=== PATIENT | male | born 2005 | race Caucasian/White ===

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

== ENCOUNTER → 2025-05-05 | Outpatient (CLI) | payer OTHER, SELFPAY ==
[2025-05-05 18:59] LABS: AST(SGOT) 31 U/L (<=37); Alanine Aminotransfer ALT/SGPT 62 U/L (<=46); Albumin, Serum 4.7 g/dL (3.5-5.0); Alkaline Phosphatase 69 U/L (40-129); Anion Gap 14 (5-15); BUN 23 mg/dL (4-19); BUN/Creat Ratio 19.8 RATIO (10-20); Calcium,Total 9.4 mg/dL (7.6-11.0); Carbon Dioxide 23.5 mmol/L (21.0-32.0); Chloride 104 mmol/L (98-108); Globulin 2.4 g/dL (2.2-4.2); Glucose 99 mg/dL (70-99); Potassium 4.0 mmol/L (3.3-5.1)
== END | disposition home or self-care (01) ==
LOC: MTLAB 15:27
PROVIDERS: PCP Family Medicine
DX: M54.9 Dorsalgia, unspecified (principal)
CPT/HCPCS: 36415; 80053

== ENCOUNTER 2025-07-18 17:04 | Emergency (ER) | payer OTHER, SELFPAY ==
[2025-07-18 17:05] VITALS: BP 158/102; PULSE 105; RESP 18; TEMP 36.8; O2SAT 100
[2025-07-18 17:06] VITALS: BMI 40.4
--- NOTE | 2025-07-18 17:07 | RAD_ITS ---
PROCEDURE: LEFT ANKLE MIN 3 VIEWS 07/18/2025 REASON FOR EXAM: INJURY TECHNIQUE: Procedure Code: RADANK Modality: DX Procedure: ANKLE MIN 3 VIEWS Laterality: Left COMPARISON: None. FINDINGS: Acute nondisplaced oblique fracture of the distal fibular shaft. No additional acute fracture or dislocation appreciated. Ankle mortise is congruent. Mild soft tissue swelling about the ankle. RAD/Ankle min 3 Views IMPRESSION: Acute nondisplaced oblique fracture of the distal fibular shaft. Reading Location: [id number]
--- OUTSIDE RECORDS SUMMARY | 2025-07-18 17:43 | XMS RPT_ITS | CCD ---
Author Organization [facility] Care Team Providers Care Finished Cloth Examiner Name Role Phone Julien Stilldavid Unavailable Unavailable KORTNEY HENDRICKSON Attending Unavailable JANI PALMA Referring UnavailRICK Meyer DO Attending Unavail mónica PRABHAKAR MD, RAYO Primary Care Unavailable Louie VALENCIA, Dr. Batres [facility]UME CHUTE OPERATOR-C, Mann Attending Provider [phone] Kenroymasonow CANE FLUME CHUTE OPERATOR-C, Mann Referring [facility] CANE FLUME CHUTE OPERATOR, Mann Referring Unavailable [facility] CANE FLUME CHUTE OPERATOR, Mann Attending Unavailable Jani Palma Primary Care Unavailable Medications Current Medications Medication Drug Class(es) Dates Sig (Normalized) Sig (Original) meloxicam 15 mg oral tablet (2 sources) Nonsteroidal Anti-inflammatory Drug Start: 01-21-2024 take 1 tablet by mouth once daily Meloxicam 15 mg tablet Active 15 mg PO DAILY January 21, 2024 12:00am Problems Active Problems Problem Classification Problem Date Documented Da te Episodic/Chronic Spondylosis; intervertebral disc disorders; other back problems (1 source) Dorsalgia, unspecified; Translations: [Dorsalgia, unspecified] Onset: 05-13-2025 Episodic Sprains and strains (3 sources) Sprain of ankle; Translations: [Sprain of unspecified ligament of unspecified ankle, initial encounter] 09-09-2023 Episodic Superficial injury; contusion (3 sources) Contusion of foot; Translations: [Contusion of unspecified foot, initial encounter] 09-09-2023 Episodic Unclassified (1 source) Unknown / UNK(Unknown) Onset: 09-17-2017 Past or Other Problems Problem Classification Problem Date Documented Da te Episodic/Chronic Unclassified (1 source) REDNESS BILATERAL EYES Onset: 09-17-2017 Results Test Name Value Interpretation Reference Range Facility Anion gap in Serum or Plasma Ordered By: Mann Huff on 05-05-2025 Anion gap [Moles/Vol] 14 mmol/L 5-15 [facility] BUN/creatinine ratioOrdered By: Mann Kenroymoe on 05-05-2025 Urea nitrogen/Creatinine [Mass ratio] 19.8 mg/mg 10-20 [facility] Bilirubin, totalOrdered By: Mann [facility] 05-05-2025 Bilirubin [Mass/Vol] 1.18 mg/dL 0.00-1.30 [facility] Carbon dioxide, total [Moles /volume] in Central venous bloodOrdered By: Mann [facility] on 05-05-2025 CO2 [Moles/Vol] 23.5 mmol/L 21.0-32.0 [facility] Chloride assayOrdered By: Kelley salgado [facility] on 05-05-2025 Chloride [Moles/Vol] 104 mmol/L 98-108 [facility] Comprehensive Metabolic Prof ilon 05-05-2025 Albumin [Mass/Vol] 4.7 g/dL Normal 3.5-5.0 [facility] Comment on above: Order Comment: Inter face Comments: wants kidneys checked Order Date: 05/05/25 Order Info: 0786 - [facility] check kidneys Performed By: #### L [id number] #### [facility] [address] [facility] [id number] Albumin/Globulin [Mass ratio] 2.0 {ratio} Normal 0.9-2.4 [facility] Comment on above: Order Comment: Inter face Comments: wants kidneys checked Order Date: 05/05/25 Order Info: 0786- - CMP check kidneys Performed By: #### L [id number] #### [facility] [address] [facility] [id number] ALK PHOS 69 U/L Normal 40-129 [facility] Comment on above: Order Comment: Inter face Comments: wants kidneys checked Order Date: 05/05/25 Order Info: 0786-1 - CMP check kidneys Performed By: #### L [id number] #### [facility] [address] [place], [address] ALT [Catalytic activity/Vol] 62 U/L High <=46 [facility] Comment on above: Order Comment: Inter face Comments: wants kidneys checked Order Date: 05/05/25 Order Info: 86-1 - CMP check kidneys Performed By: #### L [id number] #### [facility] [address] [place], [address] AST [Catalytic activity/Vol] 31 U/L Normal <=37 [facility] Comment on above: Order Comment: Inter face Comments: wants kidneys checked Order Date: 05/05/25 Order Info: 785- - CMP check kidneys Performed By: #### L [id number] #### [facility] [address] [place], [address] Bilirubin [Mass/Vol] 1.18 mg/dL Normal 0.00-1.30 [facility] Comment on above: Order Comment: Inter face Comments: wants kidneys checked Order Date: 05/05/25 Order Info: 785- - CMP check kidneys Performed By: #### L [id number] #### [facility] [address] [place], [address] BUN/CRE 19.8 RATIO Normal 10-20 [facility] Comment on above: Order Comment: Inter face Comments: wants kidneys checked Order Date: 05/05/25 Order Info: 785-1 - CMP check kidneys Performed By: #### L [id number] #### [facility] [address] [place], [address] Calcium [Mass/Vol] 9.4 mg/dL Normal 7.6-11.0 [facility] Comment on above: Order Comment: Inter face Comments: wants kidneys checked Order Date: 05/05/25 Order Info: 86-1 - CMP check kidneys Performed By: #### L [id number] #### [facility] [address] [place], [address] Chloride [Moles/Vol] 104 mmol/L Normal 98-108 [facility] Comment on above: Order Comment: Inter face Comments: wants kidneys checked Order Date: 05/05/25 Order Info: 0786-1 - CMP check kidneys Performed By: #### L [id number] #### [facility] [address] [place], [address] CO2 [Moles/Vol] 23.5 mmol/L Normal 21.0-32.0 [facility] Comment on above: Order Comment: Inter face Comments: wants kidneys checked Order Date: 05/05/25 Order Info: 785-1 - CMP check kidneys Performed By: #### L [id number] #### [facility] [address] [place], [address] Creatinine [Mass/Vol] 1.16 mg/dL Normal 0.70-1.20 [facility] Comment on above: Order Comment: Inter face Comments: wants kidneys checked Order Date: 05/05/25 Order Info: 07-1 - CMP check kidneys Performed By: #### L [id number] #### [facility] [address] [place], [address] GAP 14 Normal 5-15 [facility] Comment on above: Order Comment: Inter face Comments: wants kidneys checked Order Date: 05/05/25 Order Info: 07-1 - CMP check kidneys Performed By: #### L [id number] #### [facility] [address] [place], [address] GFR/1.73 sq M.predicted among non-blacks MDRD (S/P/Bld) [Vol rate/Area] 92 mL/min/{1.73_m2} Normal >60 [facility] Comment on above: Order Comment: Inter face Comments: wants kidneys checked Order Date: 05/05/25 Order Info: 0786-1 - CMP check kidneys Result Comment: mL/m in/1.73m2 CKD-EPI Creatinine Equation (2020) Performed By: #### L [id number] #### [facility] [address] [place], [address] Globulin (S) [Mass/Vol] 2.4 g/dL Normal 2.2-4.2 [facility] Comment on above: Order Comment: Inter face Comments: wants kidneys checked Order Date: 05/05/25 Order Info: 86-1 - CMP check kidneys Performed By: #### L [id number] #### [facility] [address] [place], [address] Glucose [Mass/Vol] 99 mg/dL Normal 70-99 [facility] Comment on above: Order Comment: Inter face Comments: wants kidneys checked Order Date: 05/05/25 Order Info: 86-1 - CMP check kidneys Performed By: #### L [id number] #### [facility] [address] [place], [address] Potassium [Moles/Vol] 4.0 mmol/L Normal 3.3-5.1 [facility] Comment on above: Order Comment: Inter face Comments: wants kidneys checked Order Date: 05/05/25 Order Info: 86-1 - CMP check kidneys Performed By: #### L [id number] #### [facility] [address] [place], [address] Sodium [Moles/Vol] 141 mmol/L Normal 133-145 [facility] Comment on above: Order Comment: Inter face Comments: wants kidneys checked Order Date: 05/05/25 Order Info: 86-1 - CMP check kidneys Performed By: #### L [id number] #### [facility] [address] [place], [address] T PROT 7.1 g/dL Normal 5.9-8.4 [facility] Comment on above: Order Comment: Inter face Comments: wants kidneys checked Order Date: 05/05/25 Order Info: 0786-1 - CMP check kidneys Performed By: #### L [id number] #### [facility] [address] [place], [place], [id number] Urea nitrogen [Mass/Vol] 23 mg/dL High 4-19 [facility] Comment on above: Order Comment: Inter face Comments: wants kidneys checked Order Date: 05/05/25 Order Info: 0786-1 - CMP check kidneys Performed By: #### L [id number] #### [facility] [address] [place], [place], [address] Glomerular filtration rate ( GFR) estimation/1.73 sq m using serum, plasma, or whole bOrdered By: Mann Huff on 05-05-2025 GFR/1.73 sq M.predicted among non-blacks MDRD (S/P/Bld) [Vol rate/Area] 92 mL/min/{1.73_m2} >60 [facility] Comment on above: mL/min/1.73m2 CKD-EP I Creatinine Equation (2020) Laboratory - Chemistry and C hemistry - challengeOrdered By: Mann Huff on 05-05-2025 AST [Catalytic activity/Vol] 31 U/L <38 [facility] Potassium measurement (mass/ volume)Ordered By: Mann Huff 05-05-2025 Potassium (Unsp spec) [Mass/Vol] 4.0 mmol/L 3.3-5.1 [facility] Serum creatinine measurement (mass/volume)Ordered By: Mann Huff 05-05-2025 Creatinine [Mass/Vol] 1.16 mg/dL 0.70-1.20 [facility] Serum globulin measurementOr dered By: Mann Huff 05-05-2025 Globulin (S) [Mass/Vol] 2.4 g/dL 2.2-4.2 [facility] Serum glucose measurement (m ass/volume)Ordered By: Mann Huff 05-05-2025 Glucose [Mass/Vol] 99 mg/dL 70-99 [facility] Serum or plasma alanine salazar otransferase (ALT) measurementOrdered By: Mann Huff 05-05-2025 ALT [Catalytic activity/Vol] 62 U/L High <47 [facility] Serum or plasma albumin demi urement (mass/volume)Ordered By: [facility] on 05-05-2025 Albumin [Mass/Vol] 4.7 g/dL 3.5-5.0 [facility] Serum or plasma albumin/glob ulin mass ratioOrdered By: [facility] Albumin/Globulin [Mass ratio] 2.0 {ratio} 0.9-2.4 [facility] Serum or plasma alkaline rich sphatase measurementOrdered By: [facility] on 05-05-2025 ALP [Catalytic activity/Vol] 69 U/L 40-129 [facility] Serum or plasma calcium demi urement (mass/volume)Ordered By: [facility] 05-05-2025 Calcium [Mass/Vol] 9.4 mg/dL 7.6-11.0 [facility] Serum or plasma urea nitroge n measurement (mass/volume)Ordered By: [facility] 05-05-2025 Urea nitrogen [Mass/Vol] 23 mg/dL High 4-19 [facility] Sodium levelOrdered By: Shayy aponte [facility] [place] 05-05-2025 Sodium [Moles/Vol] 141 mmol/L 133-145 [facility] Total proteinOrdered By: Fernando gongora [facility] [place] 05-05-2025 Protein [Mass/Vol] 7.1 g/dL 5.9-8.4 [facility] XR SPINE CERVICAL AP/LAT/FLE X/EXTon 11-12-2024 XR SPINE CERVICAL AP/LAT/FLEX/EXT ORIGINAL EXAMINATION: 3 XRAY VIEWS OF THE THORACIC SPINE; 4 XRAY VIEWS OF THE LUMBAR SPINE; 6 XRAY VIEWS OF THE CERVICAL SPINE INCLUDING FLEX/EX VIEWS 11/11/2024 12:37 pm; 11/11/2024 12:38 pm; 11/11/2024 12:39 pm COMPARISON: None. HISTORY: ORDERING SYSTEM PROVIDED HISTORY: Reason for Exam: back pain; ORDERING SYSTEM PROVIDED HISTORY: Reason for Exam: neck pain FINDINGS: Cervical: Straightening of the cervical spine. No significant spondylolisthesis. Vertebral body heights and disc spaces are maintained. Predental space is not widened. Prevertebral soft tissues are within normal limits. On extension there is trivial retrolisthesis of C3 on C4 and C4 on C5. Elongation of the C7 transverse processes. Lateral masses of C1 are symmetrically aligned with C2. Thoracic: Partially visualized lung zones are aerated. No significant scoliosis. Vertebral body heights are maintained. Lumbar: Mild levo tilt of the lumbar spine. 5 non rib-bearing lumbar type vertebral bodies. Elongation and questionable pseudoarticulation of the right L5 transverse process with the sacrum, possible Castellvi type 2 a. SI joints are maintained without evidence of ankylosis or erosions. Mild straightening of the lumbar spine. No significant spondylolisthesis. Vertebral body heights and disc spaces are maintained. No acute fracture. IMPRESSION: No acute fracture. No significant degenerative changes. Further findings as detailed above. Interpreted by: Vesta Colindres Preliminary Report By: Vesta Colindres Electronically signed By Vesta Colindres Dictated Date: 11/12/2024 9:11:02 AM Prelim Date: 11/12/2024 9:15:32 AM Sign Date: 11/12/2024 9:15:32 AM Ordering Provider: RICK DUARTE [facility] XR SPINE LUMBAR W/OBLIQUES 4 VIEWSon 11-12-2024 XR SPINE LUMBAR W/OBLIQUES 4 VIEWS ORIGINAL EXAMINATION: 3 XRAY VIEWS OF THE THORACIC SPINE; 4 XRAY VIEWS OF THE LUMBAR SPINE; 6 XRAY VIEWS OF THE CERVICAL SPINE INCLUDING FLEX/EX VIEWS 11/11/2024 12:37 pm; 11/11/2024 12:38 pm; 11/11/2024 12:39 pm COMPARISON: None. HISTORY: ORDERING SYSTEM PROVIDED HISTORY: Reason for Exam: back pain; ORDERING SYSTEM PROVIDED HISTORY: Reason for Exam: neck pain FINDINGS: Cervical: Straightening of the cervical spine. No significant spondylolisthesis. Vertebral body heights and disc spaces are maintained. Predental space is not widened. Prevertebral soft tissues are within normal limits. On extension there is trivial retrolisthesis of C3 on C4 and C4 on C5. Elongation of the C7 transverse processes. Lateral masses of C1 are symmetrically aligned with C2. Thoracic: Partially visualized lung zones are aerated. No significant scoliosis. Vertebral body heights are maintained. Lumbar: Mild levo tilt of the lumbar spine. 5 non rib-bearing lumbar type vertebral bodies. Elongation and questionable pseudoarticulation of the right L5 transverse process with the sacrum, possible Castellvi type 2 a. SI joints are maintained without evidence of ankylosis or erosions. Mild straightening of the lumbar spine. No significant spondylolisthesis. Vertebral body heights and disc spaces are maintained. No acute fracture. IMPRESSION: No acute fracture. No significant degenerative changes. Further findings as detailed above. Interpreted by: Vesta Colindres Preliminary Report By: Vesta Colindres Electronically signed By Vesta Colindres Dictated Date: 11/12/2024 9:11:02 AM Prelim Date: 11/12/2024 9:15:32 AM Sign Date: 11/12/2024 9:15:32 AM Ordering Provider: RICK Solomon [facility] XR SPINE THORACIC 2 VIEWSon 11-12-2024 XR SPINE THORACIC 2 VIEWS ORIGINAL EXAMINATION: 3 XRAY VIEWS OF THE THORACIC SPINE; 4 XRAY VIEWS OF THE LUMBAR SPINE; 6 XRAY VIEWS OF THE CERVICAL SPINE INCLUDING FLEX/EX VIEWS 11/11/2024 12:37 pm; 11/11/2024 12:38 pm; 11/11/2024 12:39 pm COMPARISON: None. HISTORY: ORDERING SYSTEM PROVIDED HISTORY: Reason for Exam: back pain; ORDERING SYSTEM PROVIDED HISTORY: Reason for Exam: neck pain FINDINGS: Cervical: Straightening of the cervical spine. No significant spondylolisthesis. Vertebral body heights and disc spaces are maintained. Predental space is not widened. Prevertebral soft tissues are within normal limits. On extension there is trivial retrolisthesis of C3 on C4 and C4 on C5. Elongation of the C7 transverse processes. Lateral masses of C1 are symmetrically aligned with C2. Thoracic: Partially visualized lung zones are aerated. No significant scoliosis. Vertebral body heights are maintained. Lumbar: Mild levo tilt of the lumbar spine. 5 non rib-bearing lumbar type vertebral bodies. Elongation and questionable pseudoarticulation of the right L5 transverse process with the sacrum, possible Castellvi type 2 a. SI joints are maintained without evidence of ankylosis or erosions. Mild straightening of the lumbar spine. No significant spondylolisthesis. Vertebral body heights and disc spaces are maintained. No acute fracture. IMPRESSION: No acute fracture. No significant degenerative changes. Further findings as detailed above. Interpreted by: Vesta Colindres Preliminary Report By: Vesta Colindres Electronically signed By Vesta Colindres Dictated Date: 11/12/2024 9:11:02 AM Prelim Date: 11/12/2024 9:15:32 AM Sign Date: 11/12/2024 9:15:32 AM Ordering Provider: RICK Solomon [facility] MSCon 09-17-2017 [facility] REPORT Normal [facility] DATE OF SERVICE: 09/17/2017REASON OF VISIT: Redness of both eyes.HISTORY OF PRESENT ILLNESS: This is a 12-year-old male who presented with redness ofboth eyes for the last few days, but for the last 1 day, it is progressing. Nodischarge, but he has significant irritation and watering. Vision is unchanged.REVIEW OF SYSTEMS: Review of other systems normal.PAST MEDICAL HISTORY/FAMILY HISTORY/SOCIAL HISTORY: Reviewed.ALLERGIES: NKA.MEDICATIONS: Tylenol.PHYSICAL EXAMINATION:General: He is awake, alert, not in distress. No dyspnea.Vital Signs: Temperature 98.4, blood pressure 130/68, pulse 86, respirations 16,pulse oximetry 96% on room air. Pain score is 0/10.HEENT: Revealed that he has moderate injection of both eyes' conjunctivae withwatering. Cornea appearance was normal. No periorbital or eyeball tenderness. Noredness.Chest: Clear to auscultate.Heart: Regular rate and rhythm.ASSESSMENT: Bilateral conjunctivitis.PLAN: Clinical findings were discussed with patient and his mother in detail. Igave him tobramycin eyedrops to use 2 drops every 6 hours in both eyes for 6 dayswith no refill. He can do cold compresses. Keep the eyes clean. Tylenol as neededand follow up with primary care provider for continuation of care. He was given aschool excuse for tomorrow. His mother understands and agreed. WILFREDO Nice/[id number]: 09/17/2017 20:04DT: 09/19/2017 20:25SSI File#: [id number] #: [id number] d 04/18/18 0951 PAWPR [facility] PATIENT NAME: SANTANA SAENZ [id number] [facility] [address] [place] MEDICAL REC #: [id number] [address] [facility] REPORT [facility] PHYSICIAN Normal [facility] Vital Signs Date Time Vital Sign Value Performing Clinician Faci lity 02-07-2024 11:41-0400 Body temperature 97.3 [degF] [facility] 02-07-2024 11:41-0400 Diastolic blood pressure 64 mm[Hg] [facility] 02-07-2024 11:41-0400 Heart rate 75 /min [facility] 02-07-2024 11:41-0400 Respiratory rate 14 /min [facility] 02-07-2024 11:41-0400 SaO2% (BldA) [Mass fraction] 94 % [facility] 02-07-2024 11:41-0400 Systolic blood pressure 122 mm[Hg] [facility] 02-07-2024 11:11-0400 Inhaled oxygen flow rate 2 L/min [facility] 02-07-2024 09:28-0400 Body height 190.5 cm [facility] 02-07-2024 09:28-0400 Body mass index (BMI) [Percentile] Per age and sex 99.4 % [facility] 02-07-2024 09:28-0400 Body mass index (BMI) [Ratio] 37.5 kg/m2 [facility] 02-07-2024 09:28-0400 Body weight 136.4 kg [facility] 09-01-2023 16:38-0500 Body height 193.04 cm [facility] 09-01-2023 16:38-0500 Body mass index (BMI) [Percentile] Per age and sex 99.2 % [facility] 09-01-2023 16:38-0500 Body mass index (BMI) [Ratio] 35.8 kg/m2 [facility] 09-01-2023 16:38-0500 Body temperature 97.8 [degF] [facility] 09-01-2023 16:38-0500 Body weight 133.4 kg [facility] 09-01-2023 16:38-0500 Diastolic blood pressure 83 mm[Hg] [facility] 09-01-2023 16:38-0500 Heart rate 95 /min [facility] 09-01-2023 16:38-0500 Respiratory rate 16 /min [facility] 09-01-2023 16:38-0500 SaO2% (BldA) [Mass fraction] 98 % [facility] 09-01-2023 16:38-0500 Systolic blood pressure 164 mm[Hg] [facility] Encounters Encounter Date Encounter Type Care Provider Facility Start: 05-05-2025 End: 05-05-[address] Jani Palma MD Work Phone: [facility] Start: 05-05-2025 End: 05-05-2025 Patient encounter procedure Mann Huff CANE FLUME CHUTE OPERATOR-C [facility] [place] Work Phone: Start: 05-05-2025 End: 05-05-2025 ambulatory Mann Huff NP Facility:[facility] Start: 11-11-2024 End: 11-11-2024 ambulatory RICK DUARTE DO Facility:D Start: 02-07-2024 End: 02-07-2024 Admission to same day surgery center [facility] Start: 02-07-2024 End: 02-07-2024 ambulatory [facility] Work Phone: Start: 12-01-2023 End: 12-01-2023 ambulatory [facility] Work Phone: Start: 12-01-2023 End: 12-01-2023 Patient encounter procedure [facility] Work Phone: Start: 09-01-2023 End: 09-01-2023 Emergency department patient visit [facility]-Emergency Department Work Phone: Start: 11-30-2022 End: 11-30-2022 ambulatory [facility] Work Phone: Start: 11-30-2022 End: 11-30-2022 [facility] Start: 10-16-2022 End: 10-16-2022 ambulatory [facility] Work Phone: Start: 10-16-2022 End: 10-16-2022 Patient encounter procedure [facility] Start: 08-15-2022 End: 08-15-2022 ambulatory [facility] Work Phone: Start: 08-15-2022 End: 08-15-2022 Patient encounter procedure [facility] Start: 01-09-2022 End: 01-09-2022 Patient encounter procedure [facility] Start: 03-01-2021 ambulatory KORTNEY Fermin lity:[facility] Start: 09-17-2017 Patient encounter Pradavid Fermin lity:[facility] Procedures Date Procedure Procedure Detail Performing Clinician Start: 02-07-2024 Arthroscopy of knee Start: 12-01-2023 MRI of joint of lowe r extremity Start: 09-01-2023 X-ray of both feet Start: 09-01-2023 Plain X-ray of tibia and fibula Start: 11-30-2022 Plain X-ray of tibia and fibula Start: 10-16-2022 Plain X-ray of tibia and fibula Start: 08-15-2022 Plain x-ray of hand Start: 01-09-2022 Diagnostic radiograp hy of finger Plan of Treatment Date Care Activity Detail Author Start: 02-07-2024 Application of ice collar, cap or bag [facility] Start: 02-07-2024 Catheterization of vein [facility] Start: 02-07-2024 Following clinical pathway protocol [facility] Start: 02-07-2024 Patient discharge [facility] Start: 02-07-2024 Procedure discontinued [facility] Start: 02-07-2024 Taking patient vital signs [facility] Start: 02-07-2024 Vital signs measurements [facility] Start: 02-07-2024 [facility] Start: 02-07-2024 Medication education [facility] Start: 09-01-2023 [facility] Patient Education ED Foot Contus ion ED Ankle Sprain (Adult) [facility] Work Phone: Patient referral [facility] Work Phone: Payers Date Payer Category Payer Self-pay [id number] 2024 Unknown [id number] 2024 Unknown [id number] 2005 Unknown [id number] Unknown [id number] Unknown [facility] PACKAGE PLAN [id number] Unknown [facility] PACKAGE PLAN . [id number] Unknown [id number] Social History Date Type Detail Facility Start: 09-20-2017 End: 01-21-2024 Tobacco smoking status NHIS Unknown if ever smoked [facility] Start: 2005 Sex Assigned At Male [facility] Start: 01-21-2024 Tobacco smoking stat us NHIS Never smoked tobacco (finding) [facility] Goals Date Patient Goal Desired Activity /State Mental Status Date Assessment Result Facility 02-07-2024 Cognitive function Voice/Name [facility] Work Phone: Procedure note 02-07-2024 Note Date & Type Note Facility 02-07-2024 Procedure note [facility] Evaluation note Note Date & Type Note Facility Evaluation note No assessment information availa ble [facility] Work Phone: Reason for referral (narrative) Note Date & Type Note Facility Reason for referral (narrative) No reason for referral information available [facility] Work Phone: Summary Purpose Family History No Family History Records FoundNo Family History Records FoundNo Family History Records FoundNo Family History Records Found Advance Directives No Advanced Directives Records Found Advance Directive Response Recorded Date/ Time Living Will No September 01 5:32pm Power of Teacher Cclc No September 01, 2023 5:32pm Advance Directive Response Recorded Date/ Time Living Will No January 21, 2024 10:12am Power of Teacher Cclc No January 20 10:12am Chief Complaint and Reason for Visit Chief Complaint HAND PAIN Chief Complaint HAND PAIN STAT- RIGHT LEG PAIN Chief Complaint RIGHT FOOT INJURY KNEE PAIN Chief Complaint KNEE PAIN KNEE ARTHROSCOPY WITH PARTIAL LATER Chief Complaint Admit Date EOER May 05, 2025 3:2 7pm Additional Source Comments (unrecognized sect ion and content) No Status Records FoundNo Status Records FoundNo Status Records FoundNo Status Records Found INFORMATION SOURCE (unrecogn ized section and content) DATE CREATED AUTHOR 04/19/2018 [facility] DATE CREATED AUTHOR AUTHOR'S ORGANIZ ATION 03/02/2021 [facility] DATE CREATED AUTHOR AUTHOR'S ORGANIZ ATION 11/13/2024 [facility] DATE CREATED AUTHOR AUTHOR'S ORGANIZ ATION 05/15/2025 [facility] Goals (unrecognized section and content) Goals may be documented in a n alternate sectionGoals may be documented in an alternate sectionGoals may be documented in an alternate sectionGoals may be documented in an alternate sectionGoals may be documented in an alternate sectionGoals may be documented in an alternate sectionGoals may be documented in an alternate section Care Teams (unrecognized sec tion and content) Team Status: Active Member Role Status Dates Dr. Kojo Plama MD Family Provider Active Dr. Kojo Palma MD Primary Care Provider Activ e Team Status: Inactive Member Role Status Dates Dr. Kojo Palma MD Primary Care Provider Activ e Dr. Santi Miller MD Attending Provider, Referring Prov ider Active Team Status: Inactive Member Role Status Dates Dr. Kojo Palma MD Primary Care Provider Activ e Bertha Zarate DO Attending Provider, Referring Pr ovider Active Team Status: Inactive Member Role Status Dates Dr. Kojo Palma MD Primary Care Provider Activ e Dr. Rozina Cortes MD Attending Provider, Emergency Provider Active Team Status: Inactive Member Role Status Dates Dr. Kojo Palma MD Primary Care Provider, Attending Provider, Referring Provider Active Team Status: Active Member Role Status Dates Dr. Jani Palma MD Family Provider Active Dr. Jani Palma MD Primary Care Provider Acti ve Team Status: Inactive Member Role Status Dates Dr. Jani Palma MD Primary Care Provider, Attending Provider, Referring Provider Active Team Status: Inactive Member Role Status Dates Dr. Jani Palma MD Primary Care Provider Acti ve Dr. Samir Agarwal DO Attending Provider, Referrin g Provider Active Team Status: Active Member Role/Relationship Status Dates Dr. Jani Palma MD Family Provider Active Dr. Jani Palma MD Primary Care Provider Acti ve Team Status: Inactive Member Role/Relationship Status Dates Dr. Jani Palma MD Primary Care Provider Acti ve Start: May 05, 2025 End: May 05, 2025 Mann Huff CANE FLUME CHUTE OPERATOR, CANE FLUME CHUTE OPERATOR-C Attending Provider Active Start: May 05, 2025 End: May 05, 2025 Mann Huff CANE FLUME CHUTE OPERATOR, CANE FLUME CHUTE OPERATOR-C Referring Provider Active Start: May 05, 2025 End: May 05, 2025 FOR RECORDS PERTAINING TO PATIENTS WHO ARE [...] BE BASED ON THE PRIMARY CLINICAL RECORDS. [facility] [employer] provides no warranty or guarantee of the accuracy or completeness of information in this document.
--- NOTE | 2025-07-18 18:11 | ED.VIS.LOWEX ---
HPI History of Present Illness Chief Complaint: Lower Extremity Injury Narrative Narrative: 20-year-old male brought in by his mother and girlfriend after injury playing football. He states that another player fell onto his left lateral lower extremity. He now has pain with weightbearing and walking. He complains of swelling on the left lateral aspect of his ankle. Denies other injuries. PFSH PFS Medical History Back pain Injury of back Wears glasses Wears contact lenses Non-smoker Leg cramps Medical History no medical history Home Medications ?Medication ?Instructions ?Recorded ?Last Taken ?Type meloxicam 15 mg tablet 15 mg PO DAILY 01/21/24 07/18/25 History oxycodone-acetaminophen 5 mg-325 1 tab PO Q6H PRN pain 3 days #12 07/18/25 Unknown Rx mg tablet (Percocet) tabs Allergy/AdvReac Type Severity Reaction Status Date / Time No Known Allergies Allergy Verified 07/18/25 17:06 Family History no significant family his Surgical History History of tonsillectomy and adenoidectomy Surgical History no surgical history Social History Smoking Status: Never smoker ROS ROS ED ROS Narrative Review of systems positive for left ankle pain and swelling. Positive injury when another player fell onto his left ankle. Pain worse with weightbearing and walking. EXAM Physical Exam Narrative Exam Narrative: GCS 15. ABCs intact. Focused examination of the left ankle shows mild swelling and tenderness on the left distal fibula area. No crepitance. Palpable dorsalis pedis pulse. No erythema. No proximal knee/fibular head tenderness. EHL intact, left. Const Vital Signs: 07/18/25 17:05 Temperature 98.2 F Temperature Source Oral Pulse Rate 105 H Respiratory Rate 18 Blood Pressure 158/102 H Blood Pressure Mean 120 Pulse Ox 100 Oxygen Delivery Method Room Air MDM MDM MDM Narrative Medical decision making narrative: Differential diagnosis includes but not limited to ankle fracture versus sprain versus contusion. Protocol x-rays obtained. On my individual interpretation of the x-rays of the left ankle, there is an acute minimally displaced oblique fracture of the distal fibular shaft. I reviewed the radiology report which confirms my independent interpretation but because it nondisplaced. I discussed patient with Dr. Agarwal, who the patient has seen previously for meniscal repair a few years ago. He would like him placed in a 3 sided splint including sugar-tong with posterior portion, make him nonweightbearing and follow-up in the office on Sunday. Patient declined any oral analgesics here in the emergency department but I wrote him a prescription for Percocet to take as needed. He was instructed to be nonweightbearing, and has crutches that he brought with him. Return instructions to the emergency department were reviewed. Disposition is discharged home in stable condition. History & Record Review Discussion w/independent historian: Patient and Family Radiography Diagnostic Testing: Clinical Impression(s) from Imaging Studies Ankle X-Ray 07/18/25 17:07 IMPRESSION: Acute nondisplaced oblique fracture of the distal fibular shaft. Reading Location: [facility] Management Discussion w/another healthcare provider: Pad Machine Offbearer (Dr. Agarwal, orthopedics) Procedures Lower Extremity Splints Lower Extremity Splint: Orthoglass and Stirrup (With posterior portion) Splint Fabrication: Fabricated Location: Left Discharge Plan Triage Chief Complaint: Lower Extremity Injury ED Provider: Twin Phelps Dx/Rx/DC Orders Clinical Impression: Fracture of distal end of left fibula, Ankle fracture Instructions: ED Ankle Fracture, Distal Fibula Prescriptions: New oxycodone-acetaminophen [Percocet] 5-325 mg tablet 1 tab PO Q6H PRN (Reason: pain) 3 Days Qty: 12 0RF No Action meloxicam 15 mg tablet 15 mg PO DAILY Primary Care Provider: Medardo Palma Referrals: Medardo Palma MD [Primary Care Provider, Family Practice] Samir Agarwal DO [Med Staff - Active Staff, Orthopedics] - 07/21/25 Activity Restrictions/Additional Instructions: Nonweightbearing on your left lower extremity. Use your crutches. Follow-up with Dr. Agarwal with orthopedics on Sunday. Call the office on Sunday for an appointment. Ice for 10 to 15 minutes a few times a day and elevate left lower extremity when possible. Return with new or worsening symptoms. Print Language: Polish Disposition Disposition: Home, Self Care
[2025-07-18 19:00] VITALS: BP 158/102; PULSE 105; RESP 18; TEMP 36.8; O2SAT 100
== END 2025-07-18 19:03 | disposition home or self-care (01) ==
PROVIDERS: Emergency Provider Emergency Medicine; PCP Family Medicine; Visit Provider Emergency Medicine
DX: S82.435A Nondisplaced oblique fracture of shaft of left fibula, initial encounter for closed fracture (principal); W51.XXXA Accidental striking against or bumped into by another person, initial encounter; Y93.61 Activity, american tackle football
CPT/HCPCS: 29515; 73610; 99282

== ENCOUNTER 2025-07-24 06:04 | Day surgery (SDC) | payer OTHER, SELFPAY ==
[2025-07-24] VITALS (12 sets, daily range): BP systolic 117–135; BP diastolic 68–81; PULSE 80–93; RESP 14–16; TEMP 36.6–37.2; O2SAT 92–98; BMI 39.4
[2025-07-24] MEDS: Lactated Ringers 1,000 ML 15 ML IV (06:34)
--- NOTE | 2025-07-24 07:11 | PCM.PRE.AN2 ---
ASA Classification* ASA Classification ASA Classification: 2 Assessment & Plan Anesthesia* Anesthesia Assessment Anesthesia Assessment: Discussed sedation and/or anesthesia options, risks, benefits, and alternatives with patient/parents/legal guardian/POA. Questions invited. The patient/parents/legal guardian/POA seems to understand and agrees to proceed with anesthesia plan. Reviewed the physical assessment, medical history, allergy history and patient home medications list prior to surgery/procedure/anesthetic and documented any changes. Performed airway and anesthesia risk assessments. Anesthesia Type Anesthesia Type: General History Source History Obtained from:: Patient and Chart Anesthesia Focused Assessment* Temperature: 98.4 F Pulse Rate: 81 Blood Pressure: 125/68 Respiratory Rate: 16 Pulse Ox: 97 Oxygen Delivery Method: Room Air Airway Assessment Mouth opens: >3 cm Mallampati Score: II Teeth Condition: Intact Neck Range of motion (ROM): Full ROM Labs Anesthesia Preop lab: CBC CHEMISTRY Potassium, (3.3-5.1) 4.0 mmol/L 05/05/25, 15:30 Sodium, (133-145) 141 mmol/L 05/05/25, 15:30 BUN, (4-19) 23 mg/dL H 05/05/25, 15:30 Creatinine, (0.70-1.20) 1.16 mg/dL 05/05/25, 15:30 Glucose, (70-99) 99 mg/dL 05/05/25, 15:30 COAG Pre-Assessment Diagnosis/Proposed Procedure Planned Operative Procedure(s): ORIF LEFT LATERAL MALLEOLUS FRACTURE AND SYNDESMOSIS Anesthesia History 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 When Was Last Pacemaker Check QUESTION #4 FULL TEXT: You/Your Family Experience fever (hyperthermia) with Anesthesia Any additional information?: No Last Oral Intake Last Oral intake: Last Oral Intake NPO since 05:30 07/24/25 06:34 Meds taken in AM with sips of Yes 07/24/25 06:34 water? Meds patient instructed to percocet 07/24/25 06:34 take am of surgery Any additional information?: No PONV PONV - lap welder: PONV - lap welder Female No 07/23/25 10:17 HX of Motion Sickness No 07/23/25 10:17 HX of N/V After Surgery No 07/23/25 10:17 Non-Smoker Yes 07/23/25 10:17 Duration of Surgery greater Yes 07/23/25 10:17 than 60 minutes Number of Risk Factors 2 07/23/25 10:17 PONV Score Moderate Risk 07/23/25 10:17 Any additional information?: No Height & Weight Height & Weight: Anesthesia: Height & Weight Height 6 ft 3 in 07/24/25 06:34 Weight: 142.882 kg 07/24/25 06:34 Body Mass Index (BMI) 39.4 07/24/25 06:34 Respiratory Assessment Respiratory Assessment - lap welder: Respiratory Tract Infection Hx - lap welder Hx Respiratory Tract Infection No 07/23/25 10:17 Any additional information?: No STOP Sleep Apnea STOP Sleep Apnea - lap welder: STOP Sleep Apnea - lap welder Hx Hypertension No 07/23/25 10:17 Hx Sleep Apnea No 07/23/25 10:17 CPAP BIPAP Do you snore loudly (louder No 07/23/25 10:17 than talking or can be heard Do you often feel tired/ No 07/23/25 10:17 fatigued/ sleepy during daytime? Has anyone observed you stop No 07/23/25 10:17 breathing during sleep? STOP Results Negative 07/23/25 10:17 QUESTION #5 FULL TEXT : Do you snore loudly (louder than talking or can be heard through closed doors)? 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 Specify any problems Hx of Preganancy in last 3 N/A 07/23/25 10:17 Months Nurse Filling Out Transfusion VLEHLAKE ANDES 07/23/25 10:17 & Questions: Date: 07/23/25 07/23/25 10:17 Time: 10:07/23/25 10:17 Patient unable to answer at this time (ie. confused, unrespo Any additional information?: No /Reproduction History /Reproductive History - lap welder: /Reproductive Hx- lap welder Hx Now Gestational Age (in weeks): EDC: Hx Hx Para Hx Section SAB Any additional information?: No Active Medications Active Medications: Current Medications Generic Name Dose Route Start Last Admin Trade Name Freq PRN Reason Stop Dose Admin Cefazolin Sodium 3 gm/ Sodium 115 mls @ 200 mls/hr 07/24/25 07:30 Chloride IV 07/24/25 08:04 INTRAOP ONE Lactated Ringer's 1,000 mls @ 15 mls/hr 07/24/25 06:15 07/24/25 06:34 IV 15 mls/hr .Q48H GORAN Administration PFSH Medical History Back pain Injury of back Wears glasses Wears contact lenses Non-smoker Leg cramps Home Medications ?Medication ?Instructions ?Recorded ?Last Taken ?Type meloxicam 15 mg tablet 15 mg PO DAILY 01/21/24 07/18/25 History oxycodone-acetaminophen 5 mg-325 1 tab PO Q6H PRN pain 3 days #12 07/18/25 07/24/25 05:30 Rx mg tablet (Percocet) tabs Allergy/AdvReac Type Severity Reaction Status Date / Time No Known Allergies Allergy Verified 07/24/25 06:32 Surgical History History of meniscectomy of left knee History of wisdom tooth extraction History of tonsillectomy and adenoidectomy Social History Smoking Status: Never smoker Review of Systems (Anesthesia) ROS Narrative System reviewed and no additional complaints, except as documented.
[2025-07-24] MEDS: Midazolam 2 MG/2 ML Syringe IV (07:23)
[2025-07-24] MEDS: Cefazolin 1 GM/5 ML Vial 3 GM IV (07:38)
[2025-07-24] MEDS: Lidocaine 1% (5 ml sdv) 5 ML Vial 10 ML IV (07:45)
--- NOTE | 2025-07-24 07:45 | RAD_ITS ---
PROCEDURE: RAD/Ankle 2 Views
[2025-07-24] MEDS: fentaNYL 100 MCG/2 ML Ampul 200 MCG IV (08:43)
[2025-07-24] MEDS: dexMEDEtomidine 200 MCG/2 ML ML 40 MCG IV (08:46)
--- NOTE | 2025-07-24 09:02 | OP.PCM_ITS ---
Operative Report (Standard)
--- NOTE | 2025-07-24 09:02 | PCM.OPRPT ---
Operative Report (Standard) Operative Information Date of Procedure: 07/24/25 Pre-Operative Diagnosis: 1. Left lateral malleolus fracture 2. Left ankle syndesmosis rupture Post-Operative Diagnosis: 1. Left lateral malleolus fracture 2. Left ankle syndesmosis rupture Surgery/Procedure Performed: 1. Open reduction internal fixation left lateral malleolus 2. Left ankle syndesmosis open reduction internal fixation management rep: Yes Auriculotherapist: Amanda Valdez Tasks completed by butcher's assistant: Opening & closing, Implanting device and Retracting Additional optometric assistant?: No Type of Anesthesia: General/Regional RN Documented Start/Stop Times: Operation Date: 07/24/25 07:30 Case Time Into Pre-Op 07/24/25 06:12 Anesthesia Start 07/24/25 07:58 Into Room 07/24/25 07:58 Procedure Start 07/24/25 08:01 Procedure End 07/24/25 08:48 Anesthesia End 07/24/25 09:00 Out of Room 07/24/25 09:00 Procedure Start Time: 08:01 Procedure Stop Time: 08:48 Select all DRAINS/GRAFTS/IMPLANTS that apply: Implanted device Implanted device details: Arthrex fibula lock 3.0 x 130 mm with 2.7 millimeter screws x 2 and tight rope x 2 Estimated Blood Loss: 5 cc Specimen collected: No Description of surgery: Patient was seen in preoperative holding area. They were identified by name, medical record number, date of . The operative extremity was marked with a surgical marker. We confirmed informed consent with the patient and all questions were answered to her satisfaction. In the preoperative holding area, a popliteal block and adductor canal block was administered by the anesthesia staff. At time of the procedure, patient was brought to the operative suite and positioned supine on a standard operating table. All bony prominences were well-padded. General anesthesia was administered. After adequate anesthesia, a well-padded pneumatic tourniquet was applied to the left upper thigh. A large bump was placed in the patient's left hip. The left lower extremity was elevated on bath blankets for fluoroscopic imaging and access to the limb during surgery. We secured this with tape as well as the nonoperative extremity. We then performed a timeout with all parties in attendance and agree with the side, site, operation to be performed. No concerns were voiced and elected to proceed. 3 g Ancef was administered prior to incision by the anesthesia staff. We then prepped and draped the operative extremity using a ChloraPrep. Limb was exsanguinated with Esmarch bandage tourniquet inflated to 250 mmHg for approximately 40 minutes. Fluoroscopy was confirmed appropriate reduction and fracture morphology for fibular nailing. Minimally displaced super syndesmotic fracture was noted. I used a 15 blade to make 2 stab incisions at the level of fracture and placed an anterior to posterior Bryant clamp to achieve and secure reduction. 1 cm longitudinal incision was made just distal to the tip of the fibula for nail insertion. Guidewire was placed in standard fashion at the ideal starting point at the tip lateral malleolus centered on the lateral projection. Opening drill was used to drill the distal cortex and distal lateral malleolus. I then used the smaller cannulated drill to go prepare our fibular canal. Nail was placed. Derotational K wire was placed. Smith's were deployed. Incision was made along the lateral malleolus then to place 2 unicortical 2.7 screws in standard fashion through the nail. Another incision was then made due to syndesmotic instability noted on external rotation stress view today to place to tight ropes in standard fashion across the 4 cortices of the syndesmosis. Tight ropes were placed and bones deployed along the medial cortex of the tibia in standard fashion. Foot was dorsiflexed during drilling and tight rope placement. Tight ropes was sequentially tightened. External rotation stress was rechecked and was stable. Sutures were cut. Wounds were irrigated with copious amounts of normal saline solution. Tourniquet was deflated. Hemostasis was excellent. Dermis was reapproximated buried 2-0 Vicryl suture and skin reapproximated with interrupted horizontal mattress 3-0 nylon suture. Bulky sterile compression dressing was applied. 3 sided short leg fiberglass splint was applied maximal dorsiflexion. Patient was safely explained the operative suite and awakened from anesthesia. He was transferred to his gurney and subsequently to PACU in stable condition. He tolerated the procedure well without apparent complication. Postoperative plan: Follow-up in 2 weeks for splint on x-rays Plan to transition to pneumatic foam walking boot in 2 weeks. Nonweightbearing x 6 weeks. Ice and elevation. Oxycodone prescription Sunday. Tylenol and ibuprofen encouraged. Aspirin 81 mg twice daily for DVT prophylaxis starting postoperative day #1. Surgical Findings: Unstable syndesmosis after fixation of lateral malleolus. Stable after fixation. Complications Complications: No Admit VTE Documentation VTE Present on Admission: No VTE Mechan Device Prophylaxis: SCD's VTE Pharm Prophylaxis ordered?: Yes
--- NOTE | 2025-07-24 09:05 | POSTOP.ANE_ITS ---
Anesthesia: Postop Eval I
--- NOTE | 2025-07-24 09:05 | PCM.POST.ANE ---
Anesthesia: Postop Eval I Current Vital Signs Temperature: 98 F Pulse Rate: 92 Blood Pressure: 132/70 Respiratory Rate: 14 Pulse Ox: 96 Assessment Airway patent: Yes Spontaneous unlabored respirations: Yes nausea: No Vomiting: No Anesthesia Complication: No Fluid Hydration Crystalloid volume administer (ml): 1,200 Total IV fluid infused: 1,200 Progress Note Anesthesia document: Postop Eval 1 completed: Yes
--- NOTE | 2025-07-24 11:56 | POSTOPAN2_ITS ---
Anesthesia Postop Eval I Sum
--- NOTE | 2025-07-24 11:56 | PCM.POSTANE2 ---
Anesthesia Postop Eval I Sum Postop Eval Completion status Anesthesia document: Postop Eval 1 completed: Yes Anesthesia Postop Eval I Summary Anesthesia Postop Eval I Summary: Anesthesia Postop Eval I: Assessment Summary Airway patent Yes 07/24/25 09:05 ASSOCIATE PRODUCT MANAGER.TNES Spontaneous unlabored Yes 07/24/25 09:05 ASSOCIATE PRODUCT MANAGER.TNES respirations Mental status nausea No 07/24/25 09:05 ASSOCIATE PRODUCT MANAGER.TNES Vomiting No 07/24/25 09:05 ASSOCIATE PRODUCT MANAGER.TNES Anesthesia Postop Eval I: Fluid Summary Crystalloid volume administer 1,200 07/24/25 09:05 ASSOCIATE PRODUCT MANAGER.TNES (ml) Colloids volume administered ( ml) Blood Product volume administered (ml) Total IV fluid infused 1,200 07/24/25 09:05 ASSOCIATE PRODUCT MANAGER.TNES Anesthesia Postop Eval I: Summary Notes Anesthesia Complication No 07/24/25 09:05 ASSOCIATE PRODUCT MANAGER.TNES Anesthesia Complication Comment: Post-operative progress note Anesthesia: Postop Eval II Evaluation Mental status: Awake Pain Level: 6 nausea: No Vomiting: No
== END 2025-07-24 11:41 | disposition home or self-care (01) ==
LOC: SDC 06:07 → AC 06:08
PROVIDERS: PCP Family Medicine; Referring Provider Student in an Organized Health Care Education/Training Program; Visit Provider Student in an Organized Health Care Education/Training Program
PROC: (CPT 27792; principal; 2025-07-24 07:10)
DX: S82.62XA Displaced fracture of lateral malleolus of left fibula, initial encounter for closed fracture (principal); S93.432A Sprain of tibiofibular ligament of left ankle, initial encounter; R03.0 Elevated blood-pressure reading, without diagnosis of hypertension; X58.XXXA Exposure to other specified factors, initial encounter; Y93.61 Activity, american tackle football
CPT/HCPCS: 27792; 27829; 64450; 64447; 01480; 73600; 76000; C1713; J2405

== ENCOUNTER → 2025-08-18 | Outpatient (CLI) | payer OTHER, SELFPAY ==
--- OUTSIDE RECORDS SUMMARY | 2025-08-18 19:33 | XMS RPT_ITS | CCD ---
Author Organization [facility] Care Team Providers Care Enterprise Cloud Architect Name Role Phone Areli Still Unavailable Unavailable KORTNEY HENDRICKSON Attending Unavailable JANI PALMA Referring UnavailRICK Meyer DO Attending Unavail mónica PRABHAKAR MD, RAYO Primary Care Unavailable Louie VALENCIA, Dr. Batres Primary Care Provider McMorrow REAL ESTATE COORDINATOR-CMann Attending Provider [place]ow REAL ESTATE COORDINATOR-C, Mann Referring Provider Dr. Jani Palma MD Primary Care Physicia n McMorrow REAL ESTATE COORDINATOR-CMann Attending Physician [place]ow REAL ESTATE COORDINATOR-C, Mann Referring Provider Twin Phelps MD Attending Physician Twin Phelps MD Emergency Department Physician Dr. Samir Agarwal DO Attending Physician Dr. Samir Agarwal DO Referring Provider Jani Palma Primary Care Unavailable Samir Agarwal Attending Unavailable Samir Agarwal Referring Unavailable Kenroyorrow Mann ARORA Referring Unavailable Jani Palma Primary Care Unavailable Refugio REAL ESTATE COORDINATORMann Attending Unavailable Jani Palma Primary Care Unavailable Twin Phelps Attending Unavailable Medications Current Medications Medication Drug Class(es) Dates Sig (Normalized) Sig (Original) acetaminophen 325 mg / oxyCODONE hydrochloride 5 mg oral tablet (1 source) Opioid Agonist Start: 07-18-2025 take 1 tablet by mouth every six hours as needed for pain Oxycodone-Acetami nophen (Percocet) 5-325 mg tablet Active 1 {tbl} PO EVERY 6 HOURS as needed for pain 12 3 0 July 18, 2025 Fracture of distal end of left fibula Fracture of ankle Other fracture of unspecified lower leg, initial encounter for closed fracture Complies with drug therapy meloxicam 15 mg oral tablet (3 sources) Nonsteroidal Anti-inflammatory Drug Start: 01-21-2024 take 1 tablet by mouth once daily Meloxicam 15 mg tablet Active 15 mg PO DAILY January 20, 2024 11:00pm Complies with drug therapy oxyCODONE hydrochloride 5 mg oral tablet (1 source) Opioid Agonist Start: 07-24-2025 take 1 tablet by mouth every six hours as needed for pain Start: 07-24-2025 take 1 tablet by mouth every s ix hours as needed for pain Problems Active Problems Problem Classification Problem Date Documented Da te Episodic/Chronic Fracture of lower limb (3 sources) Fracture of distal end of fibula; Translations: [Other fracture of upper and lower end of left fibula, initial encounter for closed fracture] Onset: 08-07-2025 07-26-2025 Episodic Other injuries and conditions due to external causes (1 source) Unspecified injury of left lower leg, initial encounter; Translations: [Unspecified injury of left lower leg, initial encounter] Onset: 07-23-2025 Episodic Spondylosis; intervertebral disc disorders; other back problems (1 source) Dorsalgia, unspecified; Translations: [Dorsalgia, unspecified] Onset: 05-13-2025 Episodic Sprains and strains (4 sources) Sprain of ankle; Translations: [Sprain of unspecified ligament of unspecified ankle, initial encounter] 09-09-2023 Episodic Superficial injury; contusion (4 sources) Contusion of foot; Translations: [Contusion of unspecified foot, initial encounter] 09-09-2023 Episodic Unclassified (1 source) Unknown / UNK(Unknown) Onset: 09-17-2017 Past or Other Problems Problem Classification Problem Date Documented Da te Episodic/Chronic Unclassified (1 source) REDNESS BILATERAL EYES Onset: 09-17-2017 Results Test Name Value Interpretation Reference Range Facility Ankle 2 Viewson 07-24-2025 Ankle 2 Views [facility] Imaging Services [address] [place] [address] Ankle 2 Views MR#: [id number] Acct: [id number] Name: SANTANA SAENZ Rep #: [id number] : 2005 M 20 From: Lion Tracy MD PCP: Dr. Jani Palma MD Status: [place] [facility] [place] Study: Ankle 2 Views Date of Exam: 07/24/25 Exam# [id number] Ordering Dr: Samir Agarwal DO PROCEDURE: ANKLE 2 VIEWS 07/24/2025 REASON FOR EXAM: ORIF LT ANKLE TECHNIQUE: Procedure Code: RADANK2 Modality: DX Procedure: ANKLE 2 VIEWS Laterality: Left COMPARISON: Left ankle x-ray 07/18/2025. FINDINGS: Bones: Intraoperative x-ray status post surgical correction of fibular fracture with metallic hardware. Joints: Well aligned. Soft tissues: Unremarkable. RAD/Ankle 2 Views IMPRESSION: Intraoperative x-ray status post surgical correction of fibular fracture with metallic hardware. Reading Location: [facility] CC: Dr. Jani Palma MD; Dr. Samir Agarwal DO Research And Development Chemist: Signed [facility] MR/POSTOP.[facility] 07-24-2025 MR/POSTOP.[facility] Medical Records Department [address] [place] [address] Anesthesia Postop Eval I 07/24/25 0905 MR#: [id number] Acct: [id number] Name: SANTANA SAENZ Rep #: [id number] : 2005 20 From: David Vargas CRNA PCP: Dr. Jani Palma MD Status:REG [facility] [place] Race: C Location: [place] [address] Anesthesia: Postop Eval I Current Vital Signs Temperature: 98 F Pulse Rate: 92 Blood Pressure: 132/70 Respiratory Rate: 14 Pulse Ox: 96 Assessment Airway patent: Yes Spontaneous unlabored respirations: Yes nausea: No Vomiting: No Anesthesia Complication: No Fluid Hydration Crystalloid volume administer (ml): 1,200 Total IV fluid infused: 1,200 Progress Note Anesthesia document: Postop Eval 1 completed: Yes 07/24/25905 Date David Vargas DISTRIBUTION TECHNICIAN Cosigner Signature: Date CC: Signed Normal [facility] MR/[id number] 07-24-2025 MR/POSTOPAN2 [facility] Medical Records Department [address] [place] [address] Anesthesia Postop Eval II 07/24/25 1156 MR#: [id number] Acct: [id number] Name: SANTANA SAENZ Rep #: [id number] : 2005 20 From: Yue Jackson CRNA PCP: Dr. Jani Palma MD Status:[facility] Y Race: C [place] [facility] [place]esthesia Postop Eval I Sum Postop Eval Completion status Anesthesia document: Postop Eval 1 completed: Yes Anesthesia Postop Eval I Summary Anesthesia Postop Eval I Summary: Anesthesia Postop Eval I: Assessment Summary Airway patent Yes 07/24/25 09:05 DISTRIBUTION TECHNICIAN.TNES Spontaneous unlabored Yes 07/24/25 09:05 DISTRIBUTION TECHNICIAN.TNES respirations Mental status nausea No 07/24/25 09:05 DISTRIBUTION TECHNICIAN.TNES Vomiting No 07/24/25 09:05 DISTRIBUTION TECHNICIAN.TNES Anesthesia Postop Eval I: Fluid Summary Crystalloid volume administer 1,200 07/24/25 09:05 DISTRIBUTION TECHNICIAN.TNES (ml) Colloids volume administered ( ml) Blood Product volume administered (ml) Total IV fluid infused 1,200 07/24/25 09:05 DISTRIBUTION TECHNICIAN.TNES Anesthesia Postop Eval I: Summary Notes Anesthesia Complication No 07/24/25 09:05 DISTRIBUTION TECHNICIAN.TNES Anesthesia Complication Comment: Post-operative progress note Anesthesia: Postop Eval II Evaluation Mental status: Awake Pain Level: 6 nausea: No Vomiting: No 07/24/25 115 Date Yue Valenciaigner Signature: Date CC: Signed Normal [facility] Operative Reporton 5 Operative Report [facility] Medical Records Department [address] [place] [address] Operative Report 07/24/25901 MR#: [id number] Acct: [id number] Name: SANTANA SAENZ Rep #: [id number] : 2005 From: Samir Agarwal DO PCP: Dr. Jani Palma MD Status:[facility] Location: [place] [address] Operative Report (Standard) Operative Information Date of Procedure: 07/24/25 Pre-Operative Diagnosis: 1. Left lateral malleolus fracture 2. Left ankle syndesmosis rupture Post-Operative Diagnosis: 1. Left lateral malleolus fracture 2. Left ankle syndesmosis rupture Surgery/Procedure Performed: 1. Open reduction internal fixation left lateral malleolus 2. Left ankle syndesmosis open reduction internal fixation glove cleaner: Yes Hospital Unit Coordinator: Amanda Valdez Tasks completed by assistant professor surgical technology: Opening closing, Implanting device and Retracting Additional golf course assistant?: No Type of Anesthesia: General/Regional RN Documented Start/Stop Times: Operation Date: 07/24/25 07:30 Case Time Into Pre-Op 07/24/25 06:12 Anesthesia Start 07/24/25 07:58 Into Room 07/24/25 07:58 Procedure Start 07/24/25 08:01 Procedure End 07/24/25 08:48 Anesthesia End 07/24/25 09:00 Out of Room 07/24/25 09:00 Procedure Start Time: 08:01 Procedure Stop Time: 08:48 Select all DRAINS/GRAFTS/IMPLANTS that apply: Implanted device Implanted device details: Arthrex fibula lock 3.0 x 130 mm with 2.7 millimeter screws x 2 and tight rope x 2 Estimated Blood Loss: 5 cc Specimen collected: No Description of surgery: Patient was seen in preoperative holding area. They were identified by name, medical record number, date of . The operative extremity was marked with a surgical marker. We confirmed informed consent with the patient and all questions were answered to her satisfaction. In the preoperative holding area, a popliteal block and adductor canal block was administered by the anesthesia staff. At time of the procedure, patient was brought to the operative suite and positioned supine on a standard operating table. All bony prominences were well-padded. General anesthesia was administered. After adequate anesthesia, a well-padded pneumatic tourniquet was applied to the left upper thigh. A large bump was placed in the patient's left hip. The left lower extremity was elevated on bath blankets for fluoroscopic imaging and access to the limb during surgery. We secured this with tape as well as the nonoperative extremity. We then performed a timeout with all parties in attendance and agree with the side, site, operation to be performed. No concerns were voiced and elected to proceed. 3 g Ancef was administered prior to incision by the anesthesia staff. We then prepped and draped the operative extremity using a ChloraPrep. Limb was exsanguinated with Esmarch bandage tourniquet inflated to 250 mmHg for approximately 40 minutes. Fluoroscopy was confirmed appropriate reduction and fracture morphology for fibular nailing. Minimally displaced super syndesmotic fracture was noted. I used a 15 blade to make 2 stab incisions at the level of fracture and placed an anterior to posterior Bryant clamp to achieve and secure reduction. 1 cm longitudinal incision was made just distal to the tip of the fibula for nail insertion. Guidewire was placed in standard fashion at the ideal starting point at the tip lateral malleolus centered on the lateral projection. Opening drill was used to drill the distal cortex and distal lateral malleolus. I then used the smaller cannulated drill to go prepare our fibular canal. Nail was placed. Derotational K wire was placed. Smith's were deployed. Incision was made along the lateral malleolus then to place 2 unicortical 2.7 screws in standard fashion through the nail. Another incision was then made due to syndesmotic instability noted on external rotation stress view today to place to tight ropes in standard fashion across the 4 cortices of the syndesmosis. Tight ropes were placed and bones deployed along the medial cortex of the tibia in standard fashion. Foot was dorsiflexed during drilling and tight rope placement. Tight ropes was sequentially tightened. External rotation stress was rechecked and was stable. Sutures were cut. Wounds were irrigated with copious amounts of normal saline solution. Tourniquet was deflated. Hemostasis was excellent. Dermis was reapproximated buried 2-0 Vicryl suture and skin reapproximated with interrupted horizontal mattress 3-0 nylon suture. Bulky sterile compression dressing was applied. 3 sided short leg fiberglass splint was applied maximal dorsiflexion. Patient was safely explained the operative suite and awakened from anesthesia. He was transferred to his gurney and subsequently to PACU in stable condition. He tolerated the procedure well without apparent complication. P (more content not included)... Normal [facility] Ankle min 3 Viewson 07-18-20 Ankle min 3 Views [facility] Imaging Services [address] [place], [place] [address] Ankle min 3 Views MR#: [id number] Acct: [id number] Name: SANTANA SAENZ Rep #: [id number] : 2005 M 20 From: Michel Sen MD PCP: Dr. Jani Palma MD Status: PRE ER Study: Ankle min 3 Views Date of Exam: 07/18/25 Exam# [id number] Ordering Dr: Provider,Ed P. PROCEDURE: LEFT ANKLE MIN 3 VIEWS 07/18/2025 REASON FOR EXAM: INJURY TECHNIQUE: Procedure Code: RADANK Modality: DX Procedure: ANKLE MIN 3 VIEWS Laterality: Left COMPARISON: None. FINDINGS: Acute nondisplaced oblique fracture of the distal fibular shaft. No additional acute fracture or dislocation appreciated. Ankle mortise is congruent. Mild soft tissue swelling about the ankle. RAD/Ankle min 3 Views IMPRESSION: Acute nondisplaced oblique fracture of the distal fibular shaft. Reading Location: [id number] CC: Dr. Jani Palma MD; ED PHYSICIAN PROVIDER Research And Development Chemist: Signed Normal [facility] Emergency Department Summary on 07-18-2025 Emergency Department Summary [facility] Medical Records Department [address] [place] [address] Emergency Department Summary 07/18/25 MR#: [id number] Acct: [id number] Name: SANTANA SAENZ Rep #: [id number] : 2005 20 From: Twin Phelps MD PCP: Dr. Jani Palma MD Status:REG ER Location: ED HPI History of Present Illness Chief Complaint: Lower Extremity Injury Narrative Narrative: 20-year-old male brought in by his mother and girlfriend after injury playing football. He states that another player fell onto his left lateral lower extremity. He now has pain with weightbearing and walking. He complains of swelling on the left lateral aspect of his ankle. Denies other injuries. PFSH PFS Medical History Back pain Injury of back Wears glasses Wears contact lenses Non-smoker Leg cramps Medical History no medical history Home Medications ???Medication ???Instructions ???Recorded ???Last Taken ???Type meloxicam 15 mg tablet 15 mg PO DAILY 01/21/24 07/18/25 H istory oxycodone-acetaminophe n 5 mg-325 1 tab PO Q6H PRN pain 3 days #12 1 Unknown Rx mg tablet (Percocet) tabs Allergy/AdvReac Type Severity Reaction Status Date / Time No Known Allergies Allergy Verified 07/18/25 17:06 Family History no significant family his Surgical History History of tonsillectomy and adenoidectomy Surgical History no surgical history Social History Smoking Status: Never smoker ROS ROS ED ROS Narrative Review of systems positive for left ankle pain and swelling. Positive injury when another player fell onto his left ankle. Pain worse with weightbearing and walking. EXAM Physical Exam Narrative Exam Narrative: GCS 15. ABCs intact. Focused examination of the left ankle shows mild swelling and tenderness on the left distal fibula area. No crepitance. Palpable dorsalis pedis pulse. No erythema. No proximal knee/fibular head tenderness. EHL intact, left. Const Vital Signs: 07/18/25 17:05 Temperature 98.2 F Temperature Source Oral Pulse Rate 105 H Respiratory Rate 18 Blood Pressure 158/102 H Blood Pressure Mean 120 Pulse Ox 100 Oxygen Delivery Method Room Air MDM MDM MDM Narrative Medical decision making narrative: Differential diagnosis includes but not limited to ankle fracture versus sprain versus contusion. Protocol x-rays obtained. On my individual interpretation of the x-rays of the left ankle, there is an acute minimally displaced oblique fracture of the distal fibular shaft. I reviewed the radiology report which confirms my independent interpretation but because it nondisplaced. I discussed patient with Dr. Agarwal, who the patient has seen previously for meniscal repair a few years ago. He would like him placed in a 3 sided splint including sugar-tong with posterior portion, make him nonweightbearing and follow-up in the office on Sunday. Patient declined any oral analgesics here in the emergency department but I wrote him a prescription for Percocet to take as needed. He was instructed to be nonweightbearing, and has crutches that he brought with him. Return instructions to the emergency department were reviewed. Disposition is discharged home in stable condition. History Record Review Discussion w/independent historian: Patient and Family Radiography Diagnostic Testing: Clinical Impression(s) from Imaging Studies Ankle X-Ray 07/18/25 17:07 IMPRESSION: Acute nondisplaced oblique fracture of the distal fibular shaft. Reading Location: [facility] Management Discussion w/another healthcare provider: Tray Drier (Dr. Agarwal, orthopedics) Procedures Lower Extremity Splints Lower Extremity Splint: Orthoglass and Stirrup (With posterior portion) Splint Fabrication: Fabricated Location: Left Discharge Plan Triage Chief Complaint: Lower Extremity Injury ED Provider: Twin Phelps Dx/Rx/DC Orders Clinical Impression: Fracture of distal end of left fibula, Ankle fracture Instructions: ED Ankle Fracture, Distal Fibula Prescriptions: New oxycodone-acetaminophe n [Percocet] 5-325 mg tablet 1 tab PO Q6H PRN (Reason: pain) 3 Days Qty: 12 0RF No Action meloxicam 15 mg tablet 15 mg PO DAILY Primary Care Provider: Jani Palma Referrals: Jani Palma MD [Primary Care Provider, [facility]] Samir Agarwal DO [Med Staff - Active Staff, Orthopedics] - 07/21/25 Activity Restrictions/Additiona l Instructions: Nonweightbearing on your left lower extremity. Use your crutches. Follow-up with Dr. Agarwal with (more content not included)... Normal [facility] Anion gap in Serum or Plasma Ordered By: [facility] on 05-05-2025 Anion gap [Moles/Vol] 14 mmol/L 5-15 [facility] BUN/creatinine ratioOrdered By: [facility] on 05-05-2025 Urea nitrogen/Creatinine [Mass ratio] 19.8 mg/mg 10-20 [facility] Bilirubin, totalOrdered By: [facility] on 05-05-2025 Bilirubin [Mass/Vol] 1.18 mg/dL 0.00-1.30 [facility] Carbon dioxide, total [Moles /volume] in Central venous bloodOrdered By: [facility] on 05-05-2025 CO2 [Moles/Vol] 23.5 mmol/L 21.0-32.0 [facility] Chloride assayOrdered By: An gel [facility] on 05-05-2025 Chloride [Moles/Vol] 104 mmol/L 98-108 [facility] Comprehensive Metabolic Prof ilon 05-05-2025 Albumin [Mass/Vol] 4.7 g/dL Normal 3.5-5.0 [facility] Comment on above: Order Comment: Inter face Comments: wants kidneys checked Order Date: 05/05/25 Order Info: 0786-1 - CMP check kidneys Performed By: #### L [id number] #### [facility] Laboratory [address] [place], [place], [address] Albumin/Globulin [Mass ratio] 2.0 {ratio} Normal 0.9-2.4 [facility] Comment on above: Order Comment: Inter face Comments: wants kidneys checked Order Date: 05/05/25 Order Info: 0786-1 - CMP check kidneys Performed By: #### L [id number] #### [facility] [address] [place], [address] ALK PHOS 69 U/L Normal 40-129 [facility] Comment on above: Order Comment: Inter face Comments: wants kidneys checked Order Date: 05/05/25 Order Info: 0786-1 - CMP check kidneys Performed By: #### L [id number] #### [facility] [address] [place], [address] ALT [Catalytic activity/Vol] 62 U/L High <=46 [facility] Comment on above: Order Comment: Inter face Comments: wants kidneys checked Order Date: 05/05/25 Order Info: 785-1 - CMP check kidneys Performed By: #### L [id number] #### [facility] [address] [place], [address] AST [Catalytic activity/Vol] 31 U/L Normal <=37 [facility] Comment on above: Order Comment: Inter face Comments: wants kidneys checked Order Date: 05/05/25 Order Info: 785-1 - CMP check kidneys Performed By: #### L [id number] #### [facility] [address] [place], [address] Bilirubin [Mass/Vol] 1.18 mg/dL Normal 0.00-1.30 [facility] Comment on above: Order Comment: Inter face Comments: wants kidneys checked Order Date: 05/05/25 Order Info: 86-1 - CMP check kidneys Performed By: #### L [id number] #### [facility] [address] [place], [address] BUN/CRE 19.8 RATIO Normal 10-20 [facility] Comment on above: Order Comment: Inter face Comments: wants kidneys checked Order Date: 05/05/25 Order Info: 0786-1 - CMP check kidneys Performed By: #### L [id number] #### [facility] [address] [place], [address] Calcium [Mass/Vol] 9.4 mg/dL Normal 7.6-11.0 [facility] Comment on above: Order Comment: Inter face Comments: wants kidneys checked Order Date: 05/05/25 Order Info: 0786-1 - CMP check kidneys Performed By: #### L [id number] #### [facility] [address] [place], [address] Chloride [Moles/Vol] 104 mmol/L Normal 98-108 [facility] Comment on above: Order Comment: Inter face Comments: wants kidneys checked Order Date: 05/05/25 Order Info: 785-1 - CMP check kidneys Performed By: #### L [id number] #### [facility] [address] [place], [address] CO2 [Moles/Vol] 23.5 mmol/L Normal 21.0-32.0 [facility] Comment on above: Order Comment: Inter face Comments: wants kidneys checked Order Date: 05/05/25 Order Info: 785-1 - CMP check kidneys Performed By: #### L [id number] #### [facility] [address] [place], [address] Creatinine [Mass/Vol] 1.16 mg/dL Normal 0.70-1.20 [facility] Comment on above: Order Comment: Inter face Comments: wants kidneys checked Order Date: 05/05/25 Order Info: 07-1 - CMP check kidneys Performed By: #### L [id number] #### [facility] [address] [place], [address] GAP 14 Normal 5-15 [facility] Comment on above: Order Comment: Inter face Comments: wants kidneys checked Order Date: 05/05/25 Order Info: 0786-1 - CMP check kidneys Performed By: #### L [id number] #### [facility] Laboratory [address] [place], [address] GFR/1.73 sq M.predicted among non-blacks MDRD (S/P/Bld) [Vol rate/Area] 92 mL/min/{1.73_m2} Normal >60 [facility] Comment on above: Order Comment: Inter face Comments: wants kidneys checked Order Date: 05/05/25 Order Info: 07-1 - CMP check kidneys Result Comment: mL/m in/1.73m2 CKD-EPI Creatinine Equation (2020) Performed By: #### L [id number] #### [facility] [address] [place], [place], [id number] [phone] Globulin (S) [Mass/Vol] 2.4 g/dL Normal 2.2-4.2 [facility] Comment on above: Order Comment: Inter face Comments: wants kidneys checked Order Date: 05/05/25 Order Info: 785-1 - CMP check kidneys Performed By: #### L 500.4050 #### [facility] [address] [place], [address] Glucose [Mass/Vol] 99 mg/dL Normal 70-99 [facility] Comment on above: Order Comment: Inter face Comments: wants kidneys checked Order Date: 05/05/25 Order Info: 785-10 - [facility] check kidneys Performed By: #### L 500.4050 #### [facility] [address] [place], [address] Potassium [Moles/Vol] 4.0 mmol/L Normal 3.3-5.1 [facility] Comment on above: Order Comment: Inter face Comments: wants kidneys checked Order Date: 05/05/25 Order Info: 785-1 - CMP check kidneys Performed By: #### L [id number] #### [facility] [facility] [address] [place], [address] Sodium [Moles/Vol] 141 mmol/L Normal 133-145 [facility] Comment on above: Order Comment: Inter face Comments: wants kidneys checked Order Date: 05/05/25 Order Info: 07-1 - CMP check kidneys Performed By: #### L 500.4050 #### [facility] [address] [place], [place], [address] T PROT 7.1 g/dL Normal 5.9-8.4 [facility] Comment on above: Order Comment: Inter face Comments: wants kidneys checked Order Date: 05/05/25 Order Info: 0786-1 - CMP check kidneys Performed By: #### L 500.4050 #### [facility] [address] [place], [place], [address] Urea nitrogen [Mass/Vol] 23 mg/dL High 4-19 [facility] Comment on above: Order Comment: Inter face Comments: wants kidneys checked Order Date: 05/05/25 Order Info: 0786-1 - CMP check kidneys Performed By: #### L 500.4050 #### [facility] [address] [place], [place], [address] Glomerular filtration rate ( GFR) estimation/1.73 sq m using serum, plasma, or whole bOrdered By: Mann Huff on 05-05-2025 GFR/1.73 sq M.predicted among non-blacks MDRD (S/P/Bld) [Vol rate/Area] 92 mL/min/{1.73_m2} >60 [facility] Comment on above: mL/min/1.73m2 CKD-EP I Creatinine Equation (2020) Laboratory - Chemistry and C hemistry - challengeOrdered By: Mann Huff on 05-05-2025 AST [Catalytic activity/Vol] 31 U/L <38 [facility] Potassium measurement (mass/ volume)Ordered By: Mann Huff 05-05-2025 Potassium (Unsp spec) [Mass/Vol] 4.0 mmol/L 3.3-5.1 [facility] Serum creatinine measurement (mass/volume)Ordered By: Mann Huff 05-05-2025 Creatinine [Mass/Vol] 1.16 mg/dL 0.70-1.20 [facility] Serum globulin measurementOr dered By: Mann Huff 05-05-2025 Globulin (S) [Mass/Vol] 2.4 g/dL 2.2-4.2 [facility] Serum glucose measurement (m ass/volume)Ordered By: Mann [facility] on 05-05-2025 Glucose [Mass/Vol] 99 mg/dL 70-99 [facility] Serum or plasma alanine salazar otransferase (ALT) measurementOrdered By: Mann [facility] on 05-05-2025 ALT [Catalytic activity/Vol] 62 U/L High <47 [facility] Serum or plasma albumin demi urement (mass/volume)Ordered By: [facility] 05-05-2025 Albumin [Mass/Vol] 4.7 g/dL 3.5-5.0 [facility] Serum or plasma albumin/glob ulin mass ratioOrdered By: [facility] 05-05-2025 Albumin/Globulin [Mass ratio] 2.0 {ratio} 0.9-2.4 [facility] Serum or plasma alkaline rich sphatase measurementOrdered By: Mann [facility]05-05-2025 ALP [Catalytic activity/Vol] 69 U/L 40-129 [facility] Serum or plasma calcium demi urement (mass/volume)Ordered By: Mann [facility]05-05-2025 Calcium [Mass/Vol] 9.4 mg/dL 7.6-11.0 [facility] Serum or plasma urea nitroge n measurement (mass/volume)Ordered By: Mann [facility] 05-05-2025 Urea nitrogen [Mass/Vol] 23 mg/dL High 4-19 [facility] Sodium levelOrdered By: Shayy aponte [facility] 05-05-2025 Sodium [Moles/Vol] 141 mmol/L 133-145 [facility] Total proteinOrdered By: Fernando gongora McMmoe on 05-05-2025 Protein [Mass/Vol] 7.1 g/dL 5.9-8.4 [facility] XR SPINE CERVICAL AP/LAT/FLE X/EXTon 11-12-2024 XR [...] 11/12/2024 9:15:32 AM Ordering Provider: RICK Solomon [facility] XR SPINE LUMBAR W/OBLIQUES 4 VIEWSon 11-12-2024 [...] 11/12/2024 9:15:32 AM Ordering Provider: RICK DUARTE [facility] XR SPINE THORACIC 2 VIEWSon 11-12-2024 XR [...] 11/12/2024 9:15:32 AM Ordering Provider: RICK DUARTE [facility] MSCon 09-17-2017 [facility] REPORT Normal [facility] DATE OF SERVICE: 09/17/2017REASON OF VISIT: Redness [...] tomorrow. His mother understands and agreed. WILFREDO Nice/[id number]: 09/17/2017 20:04DT: 09/19/2017 20:25SSI File#: [id number] #: [id number]/Reviewe d 04/18/18 0951 PAWPR [facility] PATIENT NAME: SANTANA SAENZ [id number] [place] MEDICAL REC #: [id number], [place] [address] [facility] STATCARE PHYSICIAN Normal [facility] [place] Vital Signs Date Time Vital Sign Value Performing Clinician Faci lity 07-24-2025 10:32-0400 Body temperature 98.9 [degF] Dr. Jani Palma MD Work Phone: [facility] 07-24-2025 10:32-0400 Diastolic blood pressure 75 mm[Hg] Dr. Jani Palma MD Work Phone: [facility] 07-24-2025 10:32-0400 Heart rate 91 /min Dr. Jani Palma MD Work Phone: [facility] 07-24-2025 10:32-0400 Respiratory rate 16 /min Dr. Jani Palma MD Work Phone: [facility] 07-24-2025 10:32-0400 SaO2% (BldA) [Mass fraction] 97 % Dr. Jani Palma MD Work Phone: [facility] 07-24-2025 10:32-0400 Systolic blood pressure 122 mm[Hg] Dr. Jani Palma MD Work Phone: [facility] 07-24-2025 06:34-0400 Body height 190.[address] Jani Palma MD Work Phone: 3(845)593-210257 [place] [address] 07-24-2025 06:34-0400 Body mass index (BMI) [Ratio] 39.4 kg/m2 Dr. Jani Palma MD Work Phone: 5(957)030-064857 [place] [address] 07-24-2025 06:34-0400 Body weight 142.[address] Jani Palma MD Work Phone: 8(729)190-798320 [place] [address] 07-18-2025 19:00-0400 Body temperature 98.2 [degF] Dr. Jani Palma MD Work Phone: 0(061)216-737720 [place] [address] 07-18-2025 19:00-0400 Diastolic blood pressure 102 mm[Hg] Dr. Jani Palma MD Work Phone: 0(432)115-257520 [place] [address] 07-18-2025 19:00-0400 Heart rate 105 /min Dr. Jani Palma MD Work Phone: 1(949)209-818620 [place] [address] 07-18-2025 19:00-0400 Respiratory rate 18 /min Dr. Jani Palma MD Work Phone: 1(137)519-430120 [place] [address] 07-18-2025 19:00-0400 SaO2% (BldA) [Mass fraction] 100 % Dr. Jani Palma MD Work Phone: 7(355)548-782520 [place] [address] 07-18-2025 19:00-0400 Systolic blood pressure 158 mm[Hg] Dr. Jani Palma MD Work Phone: 9(569)411-361520 [place] [address] 07-18-2025 17:06-0400 Body mass index (BMI) [Ratio] 40.4 kg/m2 Dr. Jani Palma MD Work Phone: 4(734)647-996420 [place] [address] 07-18-2025 17:06-0400 Body weight 146.[address] Jani Palma MD Work Phone: 4(445)726-773620 [place] [address] 02-07-2024 11:41-0400 Body temperature 97.3 [degF] [facility] 02-07-2024 11:41-0400 Diastolic blood pressure 64 mm[Hg] [facility] 02-07-2024 11:41-0400 Heart rate 75 /min [facility] 02-07-2024 11:41-0400 Respiratory rate 14 /min [facility] 02-07-2024 11:41-0400 SaO2% (BldA) [Mass fraction] 94 % [facility] 02-07-2024 11:41-0400 Systolic blood pressure 122 mm[Hg] [facility] 02-07-2024 11:11-0400 Inhaled oxygen flow rate 2 L/min [facility] 02-07-2024 09:28-0400 Body height 190.5 cm [facility] 02-07-2024 09:28-0400 Body mass index (BMI) [Percentile] Per age and sex 99.4 % [facility] 02-07-2024 09:28-0400 Body mass index (BMI) [Ratio] 37.5 kg/m2 [facility] 02-07-2024 09:28-0400 Body weight 136.4 kg [facility] 09-01-2023 16:38-0500 Body height 193.04 cm [facility] 09-01-2023 16:38-0500 Body mass index (BMI) [Percentile] Per age and sex 99.2 % [facility] 09-01-2023 16:38-0500 Body mass index (BMI) [Ratio] 35.8 kg/m2 [facility] 09-01-2023 16:38-0500 Body temperature 97.8 [degF] [facility] 09-01-2023 16:38-0500 Body weight 133.4 kg [facility] 09-01-2023 16:38-0500 Diastolic blood pressure 83 mm[Hg] [facility] 09-01-2023 16:38-0500 Heart rate 95 /min [facility] 09-01-2023 16:38-0500 Respiratory rate 16 /min [facility] 09-01-2023 16:38-0500 SaO2% (BldA) [Mass fraction] 98 % [facility] 09-01-2023 16:38-0500 Systolic blood pressure 164 mm[Hg] [facility] Encounters Encounter Date Encounter Type Care Provider Facility Start: 07-24-2025 End: 07-24-2025 ambulatory Jani Palma Facility:[facility] Start: 07-18-2025 End: 07-18-2025 Emergency department patient visit Dr. Twin Phelps MD -Emergency Department Work Phone: Start: 05-05-2025 End: 05-05-[address] Jani Palma MD Work Phone: -[facility] [place] Start: 05-05-2025 End: 05-05-2025 Patient encounter procedure Mann Huff REAL ESTATE COORDINATOR-C -[facility] [place] Work Phone: Start: 05-05-2025 End: 05-05-2025 ambulatory Mann Huff REAL ESTATE COORDINATOR Facility:[facility] Start: 11-11-2024 End: 11-11-2024 ambulatory RICK DUARTE DO Facility:D Start: 02-07-2024 End: 02-07-2024 Admission to same day surgery center [facility]-Surgical Day Care Start: 02-07-2024 End: 02-07-2024 ambulatory [facility] Work Phone: Start: 12-01-2023 End: 12-01-2023 ambulatory [facility] Work Phone: Start: 12-01-2023 End: 12-01-2023 Patient encounter procedure [facility]-MRI - [facility] Work Phone: Start: 09-01-2023 End: 09-01-2023 Emergency department patient visit [facility]-Emergency Department Work Phone: Start: 11-30-2022 End: 11-30-2022 ambulatory [facility] Work Phone: Start: 11-30-2022 End: 11-30-2022 Patient encounter procedure [facility]-Radiology, [place] Start: 10-16-2022 End: 10-16-2022 ambulatory [facility] Work Phone: Start: 10-16-2022 End: 01-16-2023 Patient encounter procedure [facility] Start: 08-15-2022 End: 08-15-2022 ambulatory [facility] Work Phone: Start: 08-15-2022 End: 08-15-2022 Patient encounter procedure [facility] Start: 01-09-2022 End: 01-09-2022 Patient encounter procedure [facility] Start: 03-01-2021 ambulatory KORTNEY Ophelia FULLERCOREY Faci lity:[facility] Start: 09-17-2017 Patient encounter Pradavid Still Facjose francisco lity:[facility] Procedures Date Procedure Procedure Detail Performing Clinician Start: 07-18-2025 Radex ankle complete minimum [address] Jani Palma MD Work Phone: Start: 02-07-2024 Arthroscopy of knee Start: 12-01-2023 [...] Treatment Date Care Activity Detail Author Start: 07-24-2025 Application of ice c ollar, cap or bag [facility] Start: 07-24-2025 Catheterization of vein [facility] Start: 07-24-2025 Elevation of affecte d extremity [facility] Start: 07-24-2025 Following clinical p athway protocol [facility] Start: 07-24-2025 Patient discharge [facility] Start: 07-24-2025 Procedure discontinued [facility] Start: 07-24-2025 Taking patient vital signs [facility] Start: 07-24-2025 Vital signs measurements [facility] Start: 07-24-2025 [facility] Start: 07-24-2025 Fluoroscopic guidance O.R. Flu gold for C-Arm [facility] Start: 07-24-2025 Radiologic examinati on ankle 2 views Ankle 2 Views [facility] Start: 07-24-2025 Open reduction with internal fixation ORIF, Ankle (Left) [facility] Start: 07-24-2025 End: 07-24-2025 Admission to same day surgery center [facility] Start: 07-24-2025 Medication education [facility] Start: 02-07-2024 Application of ice c ollar, cap or bag [facility] Start: 02-07-2024 Catheterization of vein [facility] Start: 02-07-2024 Following clinical p athway protocol [facility] Start: 02-07-2024 Patient discharge [facility] Start: 02-07-2024 Procedure discontinued [facility] Start: 02-07-2024 Taking patient vital signs [facility] Start: 02-07-2024 Vital signs measurements [facility] Start: 02-07-2024 [facility] Start: 02-07-2024 Medication education [facility] Start: 09-01-2023 [facility] Patient Education [facility] Work Phone: Patient referral [facility] Work Phone: Payers Date Payer Category Payer Self-pay [id number] 2024 Unknown [id number] 2024 Unknown [id number] 2005 Unknown [id number] Unknown [id number] Unknown [facility] PACKAGE PLAN [id number] Unknown . [id number] Unknown [id number] Unknown [id number] .. [id number] Unknown [id number] Social History Date Type Detail Facility Start: 09-20-2017 End: 01-21-2024 Tobacco smoking status AZIS Unknown if ever smoked [facility] Start: 2005 Sex Assigned At Male [facility] Start: 01-21-2024 End: 07-23-2025 Tobacco smoking status NHIS Never smoked tobacco (finding) [facility] Sex Male [facility] Medical Equipment Procedure Code Equipment Code Equipment Original Text Equipment Identifier Dates ORIF, ankle 2.7 cortical screw FDA Start : 07-24-2025 ORIF, ankle Ligament reconst ruction instrument set, reusable [id number] FDA Start: 07-24-2025 ORIF, ankle Ligament reconst ruction instrument set, reusable [id number] FDA Start: 07-24-2025 ORIF, ankle ([id number]) Orthopaedic bone pin, non-bioabsorbable [id number] FDA Start: 07-24-2025 Goals Date Patient Goal Desired Activity /State Mental Status Date Assessment Result Facility 07-24-2025 Cognitive function Level Of Consciousness Sedated [facility] Work Phone: 07-24-2025 Cognitive function Voice/Name [facility] Work Phone: 02-07-2024 Cognitive function Voice/Name [facility] Work Phone: Discharge summary 07-18-2025 Note Date & Type Note Facility 07-18-2025 Discharge summary [facility] Radiology Diagnostic study note 07-18-2025 Note Date & Type Note Facility 07-18-2025 Radiology Diagnostic study note [facility] Imaging Services [address] [place], [place] [address] Ankle min 3 Views MR#: [id number] Acct: [id number] Name: SANTANA SAENZ Rep #: [id number] : 2005 M 20 From: Armani Sen MD PCP: Dr. Jani Palma MD Status: PRE ER Study:Ankle min 3 Views Date of Exam: Exam# [id number] Ordering Dr: Provider ,Ed P. PROCEDURE: LEFT ANKLE MIN 3 VIEWS 07/18/2025 REASON FOR EXAM: INJURY TECHNIQUE: Procedure Code: RADANK Modality: DX Procedure: ANKLE MIN 3 VIEWS Laterality: Left COMPARISON: None. FINDINGS: Acute nondisplaced oblique fracture of the distal fibular shaft. No additional acute fracture or dislocation appreciated. Ankle mortise is congruent. Mild soft tissue swelling about the ankle. RAD/Ankle min 3 Views IMPRESSION: Acute nondisplaced oblique fracture of the distal fibular shaft. Reading Location: [id number] CC: Dr. Jani Palma MD; ED PHYSICIAN PROVIDER ~ Research And Development Chemist: Signed [facility] Discharge summary 07-18-2025 Note Date & Type Note Facility 07-18-2025 Discharge summary Note Date/Time July 18, 2025 7:46pm [facility] Medical Records Department [address] [place] [id number] Emergency Department Summary 07/18/25 MR#: [id number] Acct: [id number] Name: SANTANA SAENZ Rep #:[id number] : 2005 20 From: Twin Phelps MD PCP: Dr. Jani Palma MD Status :REG ER Location: ED HPI History of Present Illness Chief Complaint: Lower Extremity Injury Narrative Narrative: 20-year-old male brought in by his mother and girlfriend after injury playing football. He states that another player fell onto his left lateral lower extremity. He now has pain with weightbearing and walking. He complains of swelling on the left lateral aspect of his ankle. Denies other injuries. [facility] Medical History Back pain Injury of back Wears glasses Wears contact lenses Non-smoker Leg cramps Medical History no medical history Home Medications ?Medication ?Instructions ?Recorded ?Last Taken ?Type meloxicam 15 mg tablet 15 mg PO DAILY 01/21/2407/01 History oxycodone-acetaminophen 5 mg-325 1 tab PO Q6H PRN pain 3 days #12 07/18/25 Unknown Rx mg tablet (Percocet) tabs Allergy/AdvReac Type Severity Reaction Status Date / Time No Known Allergies Allergy Verified 07/18/25 17:06 Family History no significant family his Surgical History History of tonsillectomy and adenoidectomy Surgical History no surgical history Social History Smoking Status: Never smoker ROS ROS ED ROS Narrative Review of systems positive for left ankle pain and swelling. Positive injury when another player fell onto his left ankle. Pain worse with weightbearing andwalking. EXAM Physical Exam Narrative Exam Narrative: GCS 15. ABCs intact. Focused examination of the left ankle shows mild swellingand tenderness on the left distal fibula area. No crepitance. Palpable dorsalis pedis pulse. No erythema. No proximal knee/fibular head tenderness. EHL intact, left. Const Vital Signs: 07/18/25 17:05 Temperature 98.2 F Temperature Source Oral Pulse Rate 105 H Respiratory Rate 18 Blood Pressure 158/102 H Blood Pressure Mean 120 Pulse Ox 100 Oxygen Delivery Method Room Air MDM MDM MDM Narrative Medical decision making narrative: Differential diagnosis includes but not limited to ankle fracture versus sprain versus contusion. Protocol x-rays obtained. On my individual interpretation ofthe x-rays of the left ankle, there is an acute minimally displaced oblique fracture of the distal fibular shaft. I reviewed the radiology report which confirms my independent interpretation but because it nondisplaced. I discussedpatient with Dr. Agarwal, who the patient has seen previously for meniscal repair a few years ago. He would like him placed in a 3 sided splint including sugar-tong with posterior portion, make him nonweightbearing and follow-up in the office on Sunday. Patient declined any oral analgesics here in the emergency department but I wrote him a prescription for Percocet to take as needed. He was instructed to be nonweightbearing, and has crutches that he brought with him. Return instructions to the emergency department were reviewed. Disposition is discharged home in stable condition. History & Record Review Discussion w/independent historian: Patient and Family Radiography Diagnostic Testing: Clinical Impression(s) from Imaging Studies Ankle X-Ray 07/18/25 17:07 IMPRESSION: Acute nondisplaced oblique fracture of the distal fibular shaft. Reading Location: [facility] Management Discussion w/another healthcare provider: Tray Drier (Dr. Agarwal, orthopedics) Procedures Lower Extremity Splints Lower Extremity Splint: Orthoglass and Stirrup (With posterior portion) Splint Fabrication: Fabricated Location: Left Discharge Plan Triage Chief Complaint: Lower Extremity Injury ED Provider: Twin Phelps Dx/Rx/DC Orders Clinical Impression: Fracture of distal end of left fibula, Ankle fracture Instructions: ED Ankle Fracture, Distal Fibula Prescriptions: New oxycodone-acetaminophen [Percocet] 5-325 mg tablet 1 tab PO Q6H PRN (Reason: pain) 3 Days Qty: 12 0RF No Action meloxicam 15 mg tablet 15 mg PO DAILY Primary Care Provider: Jani Palma Referrals: Jani Palma MD [Primary Care Provider, Family Practice] Samir Agarwal DO [Med Staff - Active Staff, Orthopedics] - 07/21/25 Activity Restrictions/Additional Instructions: Nonweightbearing on your left lower extremity. Use your crutches. Follow-up with Dr. Agarwal with orthopedics on Sunday. Call the office on Sunday for an appointment. Ice for 10 to 15 minutes a few times a day and elevate left lower extremity when possible. Return with new or worsening symptoms. Print Language: Slovenian Disposition Disposition: Home, Self Care What to do if you have Problems For any increased pain, shortness of breath, bleeding, nausea or vomiting, chestpain, or any unexpected problems, contact your Primary Care Provider. Call [facility] ([phone]) or report to the closest Emergency Room. Call 911 if necessary. 07/18/25 9629 <Electronically signed by Twin Phelps MD> Cosigner Signature (if applicable): CC: Dr. Jani Palma MD ~ Signed [facility] Work Phone: Procedure note 02-07-2024 Note Date & Type Note Facility 02-07-[address] [facility] Evaluation note Note Date & Type Note Facility Evaluation note No assessment information availa ble [facility] Work Phone: Hospital Discharge instructions Note Date & Type Note Facility Hospital Discharge instructions Additional Instructions Nonweightbearing on your left lower extremity. Use your crutches. Follow-up with Dr. Agarwal with orthopedics on Sunday. Call the office on Sunday for an appointment. Ice for 10 to 15 minutes a few times a day and elevate left lower extremity when possible. Return with new or worsening symptoms. [facility] Work Phone: Reason for referral (narrative) Note Date & Type Note Facility Reason for referral (narrative) No reason for referral information available [facility] Work Phone: Summary Purpose Family History No Family History Records FoundNo Family History Records FoundNo Family History Records FoundNo Family History Records Found Advance Directives No Advanced Directives Records Found Advance Directive Response Recorded Date/ Time Living Will No September 01 5:32pm Power of Behavioral Geneticist No September 01, 2023 5:32pm Advance Directive Response Recorded Date/ Time Living Will No January 21, 2024 10:12am Power of Behavioral Geneticist No January 20 10:12am Advance Directive Response Recorded Date/ Time Do you have a Healthcare Power of Behavioral Geneticist? No July 23, 2025 9:17am Do you have a Healthcare Power of Behavioral Geneticist? No July 18, 2025 4:40pm Chief Complaint and Reason for Visit Chief Complaint HAND PAIN Chief Complaint HAND PAIN STAT- RIGHT LEG PAIN Chief Complaint RIGHT FOOT INJURY KNEE PAIN Chief Complaint KNEE PAIN KNEE ARTHROSCOPY WITH PARTIAL LATER Chief Complaint Admit Date EOER May 05, 2025 3:2 7pm Chief Complaint Admit Date EOER May 05, 2025 3:2 7pm Ankle injury July 18, 2025 5 :04pm Additional Source Comments (unrecognized sect ion and content) No Status Records FoundNo Status Records FoundNo Status Records FoundNo Status Records Found INFORMATION SOURCE (unrecogn ized section and content) DATE CREATED AUTHOR 04/19/2018 [facility] DATE CREATED AUTHOR AUTHOR'S ORGANIZ ATION 03/02/2021 [facility] DATE CREATED AUTHOR AUTHOR'S ORGANIZ ATION 11/13/2024 [facility] DATE CREATED AUTHOR AUTHOR'S ORGANIZ ATION 08/08/2025 [facility] Goals (unrecognized section and content) Goals [...] Active Member Role Status Dates Dr. Kojo Palma MD Family Provider Active Dr. Kojo Palma [...] 2025 End: May 05, 2025 Mann Huff REAL ESTATE COORDINATOR, REAL ESTATE COORDINATOR-C Attending Provider Active Start: May 05, 2025 End: May 05, 2025 Mann Huff REAL ESTATE COORDINATOR, REAL ESTATE COORDINATOR-C Referring Provider Active Start: May 05, 2025 End: May 05, 2025 Team Status: Active Member Role/Relationship Status Dates Dr. Jani Palma MD Primary care physician Act loida Team Status: Inactive Member Role/Relationship Status Dates Dr. Jani Palma MD Primary care physician Act loida Start: May 05, 2025 End: May 05, 2025 Mann Huff REAL ESTATE COORDINATOR, REAL ESTATE COORDINATOR-C Attending physician Active Start: May 05, 2025 End: May 05, 2025 Mann Huff REAL ESTATE COORDINATOR, REAL ESTATE COORDINATOR-C Referring Provider Active Start: May 05, 2025 End: May 05, 2025 Team Status: Inactive Member Role/Relationship Status Dates Dr. Jani Palma MD Primary care physician Act loida Start: July 18, 2025 End: July 18, 2025 Twin Phelps MD Attending physician Active Sta rt: July 18, 2025 End: July 18, 2025 Twin Phelps MD Emergency Department Physician Active Start: July 18, 2025 End: July 18, 2025 Team Status: Inactive Member Role/Relationship Status Dates Dr. Jani Palma MD Primary care physician Act loida Start: July 24, 2025 End: July 24, 2025 Dr. Samir Agarwal DO Attending physician Active Start: July 24, 2025 End: July 24, 2025 Dr. Samir Agarwal DO Referring Provider Active Start: July 24, 2025 End: July 24, 2025 FOR RECORDS PERTAINING TO PATIENTS WHO [...] BE BASED ON THE PRIMARY CLINICAL RECORDS. [facility] [employer] provides no warranty or guarantee of the accuracy or completeness of information in this document.
== END | disposition home or self-care (01) ==
LOC: LABSPEC 15:47
PROVIDERS: PCP Family Medicine; Referring Provider Student in an Organized Health Care Education/Training Program; Visit Provider Student in an Organized Health Care Education/Training Program
DX: S82.62XD Displaced fracture of lateral malleolus of left fibula, subsequent encounter for closed fracture with routine healing (principal); S93.432D Sprain of tibiofibular ligament of left ankle, subsequent encounter
CPT/HCPCS: 87070; 87075; 87077; 87186; 87205

== ENCOUNTER 2025-08-20 09:32 | Day surgery (SDC) | payer OTHER, SELFPAY ==
[2025-08-20] VITALS (10 sets, daily range): BP systolic 113–142; BP diastolic 61–83; PULSE 80–92; RESP 14–18; TEMP 36.3–37.2; O2SAT 93–96; BMI 39.6
[2025-08-20] MEDS: Lactated Ringers 1,000 ML 15 ML IV (10:22)
--- NOTE | 2025-08-20 10:27 | PCM.PRE.AN2 ---
ASA Classification* ASA Classification ASA Classification: 3 Assessment & Plan Anesthesia* Anesthesia Assessment Anesthesia Assessment: Discussed sedation and/or anesthesia options, risks, benefits, and alternatives with patient/parents/legal guardian/POA. Questions invited. The patient/parents/legal guardian/POA seems to understand and agrees to proceed with anesthesia plan. Reviewed the physical assessment, medical history, allergy history and patient home medications list prior to surgery/procedure/anesthetic and documented any changes. Performed airway and anesthesia risk assessments. Anesthesia Type Anesthesia Type: General and Block (is consented, but only if requested by Surgeon) Anesthesia Focused Assessment* Temperature: 98.9 F Pulse Rate: 80 Blood Pressure: 142/81 Respiratory Rate: 18 Pulse Ox: 95 Airway Assessment Mouth opens: >3 cm Mallampati Score: II Labs Anesthesia Preop lab: CBC CHEMISTRY Potassium, (3.3-5.1) 4.0 mmol/L 05/05/25, 15:30 Sodium, (133-145) 141 mmol/L 05/05/25, 15:30 BUN, (4-19) 23 mg/dL H 05/05/25, 15:30 Creatinine, (0.70-1.20) 1.16 mg/dL 05/05/25, 15:30 Glucose, (70-99) 99 mg/dL 05/05/25, 15:30 COAG Pre-Assessment Diagnosis/Proposed Procedure Planned Operative Procedure(s): Left Ankle I&D Anesthesia History Anesthesia History - supervisor belt and link 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 When Was Last Pacemaker Check QUESTION #4 FULL TEXT: You/Your Family Experience fever (hyperthermia) with Anesthesia Last Oral Intake Last Oral intake: Last Oral Intake NPO since 18:30 08/20/25 10:11 Meds taken in AM with sips of water? Meds patient instructed to take am of surgery PONV PONV - supervisor belt and link assembly: PONV - supervisor belt and link assembly Female HX of Motion Sickness HX of N/V After Surgery Non-Smoker Duration of Surgery greater than 60 minutes Number of Risk Factors PONV Score Height & Weight Height & Weight: Anesthesia: Height & Weight Height 6 ft 3 in 08/20/25 10:11 Weight: 144.1 kg 08/20/25 10:11 Body Mass Index (BMI) 39.6 08/20/25 10:11 Respiratory Assessment Respiratory Assessment - supervisor belt and link assembly: Respiratory Tract Infection Hx - supervisor belt and link assembly Hx Respiratory Tract Infection No 07/23/25 10:17 STOP Sleep Apnea STOP Sleep Apnea - supervisor belt and link assembly: STOP Sleep Apnea - supervisor belt and link assembly Hx Hypertension No 07/23/25 10:17 Hx Sleep Apnea No 07/24/25 10:32 CPAP BIPAP Do you snore loudly (louder than talking or can be heard Do you often feel tired/ fatigued/ sleepy during daytime? Has anyone observed you stop breathing during sleep? STOP Results QUESTION #5 FULL TEXT : Do you snore loudly (louder than talking or can be heard through closed doors)? 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 Specify any problems Hx of Preganancy in last 3 Months Nurse Filling Out Transfusion & Questions: Date: Time: Patient unable to answer at this time (ie. confused, unrespo /Reproduction History /Reproductive History - supervisor belt and link assembly: /Reproductive Hx- supervisor belt and link assembly Hx Now Gestational Age (in weeks): EDC: Hx Hx Para Hx Section SAB Does the father of the baby or his family experience fever w Father of the baby Malignant Hypertension history comment Active Medications Active Medications: Current Medications Generic Name Dose Route Start Last Admin Trade Name Freq PRN Reason Stop Dose Admin Lactated Ringer's 1,000 mls @ 15 mls/hr 08/20/25 10:00 08/20/25 10:22 IV 15 mls/hr .Q48H GORAN Administration PFSH Medical History Back pain Injury of back Wears glasses Wears contact lenses Non-smoker Leg cramps Home Medications ?Medication ?Instructions ?Recorded ?Last Taken ?Type meloxicam 15 mg tablet 15 mg PO DAILY 01/21/24 08/19/25 History oxycodone 5 mg tablet 5 mg PO Q6H PRN pain 7 days #28 07/24/25 08/19/25 Rx tabs doxycycline monohydrate 100 mg 100 mg PO BID 08/20/25 08/19/25 History capsule Allergy/AdvReac Type Severity Reaction Status Date / Time No Known Allergies Allergy Verified 08/20/25 10:09 Surgical History History of meniscectomy of left knee History of wisdom tooth extraction History of tonsillectomy and adenoidectomy Social History Smoking Status: Never smoker Review of Systems (Anesthesia) ROS Narrative System reviewed and no additional complaints, except as documented.
[2025-08-20] MEDS: Lactated Ringers 500 ML IV (11:26)
[2025-08-20] MEDS: fentaNYL 100 MCG/2 ML Ampul IV (11:28)
[2025-08-20] MEDS: Cefazolin 1 GM/5 ML Vial 3 GM IV (11:30)
[2025-08-20] MEDS: Lidocaine 1% (5 ml sdv) 5 ML Vial IV (11:31)
[2025-08-20] MEDS: dexMEDEtomidine 200 MCG/2 ML ML 40 MCG IV (12:10)
--- NOTE | 2025-08-20 12:25 | PCM.POST.ANE ---
Anesthesia: Postop Eval I Current Vital Signs Temperature: 97.4 F Pulse Rate: 90 Blood Pressure: 120/64 Respiratory Rate: 14 Pulse Ox: 96 Oxygen Delivery Method: Room Air Assessment Airway patent: Yes Spontaneous unlabored respirations: Yes Mental status: Awake and Calm nausea: No Vomiting: No Anesthesia Complication: No Fluid Hydration Crystalloid volume administer (ml): 500 Total IV fluid infused: 500 Progress Note Anesthesia document: Postop Eval 1 completed: Yes
--- NOTE | 2025-08-20 12:30 | POSTOPAN2_ITS ---
Anesthesia Postop Eval I Sum Postop Eval Completion status Anesthesia document: Postop Eval 1 completed: Yes Anesthesia Postop Eval I Summary Anesthesia Postop Eval I Summary: Anesthesia Postop Eval I: Assessment Summary Airway patent Yes 08/20/25 12:26 GROUNDWATER MONITORING TECHNICIAN.[email or web address] Spontaneous unlabored Yes 08/20/25 12:26 GROUNDWATER MONITORING TECHNICIAN.GDOTT respirations Mental status Awake,Calm 08/20/25 12:26 GROUNDWATER MONITORING TECHNICIAN.GDOTT nausea No 08/20/25 12:26 GROUNDWATER MONITORING TECHNICIAN.GDOTT Vomiting No 08/20/25 12:26 GROUNDWATER MONITORING TECHNICIAN.GDOTT Anesthesia Postop Eval I: Fluid Summary Crystalloid volume administer 500 08/20/25 12:26 GROUNDWATER MONITORING TECHNICIAN.GDOTT (ml) Colloids volume administered ( ml) Blood Product volume administered (ml) Total IV fluid infused 500 08/20/25 12:26 GROUNDWATER MONITORING TECHNICIAN.GDOTT Anesthesia Postop Eval I: Summary Notes Anesthesia Complication No 08/20/25 12:26 GROUNDWATER MONITORING TECHNICIAN.GDOTT Anesthesia Complication Comment: Post-operative progress note Anesthesia: Postop Eval II Evaluation Mental status: Awake and Calm Pain Level: 2 nausea: No Vomiting: No
--- NOTE | 2025-08-20 12:30 | PCM.POSTANE2 ---
Anesthesia Postop Eval I Sum Postop Eval Completion status Anesthesia document: Postop Eval 1 completed: Yes Anesthesia Postop Eval I Summary Anesthesia Postop Eval I Summary: Anesthesia Postop Eval I: Assessment Summary Airway patent Yes 08/20/25 12:26 MECHANICAL MAINTENANCE ENGINEER.[email or web address] Spontaneous unlabored Yes 08/20/25 12:26 MECHANICAL MAINTENANCE ENGINEER.GDOTT respirations Mental status Awake,Calm 08/20/25 12:26 MECHANICAL MAINTENANCE ENGINEER.GDOTT nausea No 08/20/25 12:26 MECHANICAL MAINTENANCE ENGINEER.GDOTT Vomiting No 08/20/25 12:26 MECHANICAL MAINTENANCE ENGINEER.GDOTT Anesthesia Postop Eval I: Fluid Summary Crystalloid volume administer 500 08/20/25 12:26 MECHANICAL MAINTENANCE ENGINEER.GDOTT (ml) Colloids volume administered ( ml) Blood Product volume administered (ml) Total IV fluid infused 500 08/20/25 12:26 MECHANICAL MAINTENANCE ENGINEER.GDOTT Anesthesia Postop Eval I: Summary Notes Anesthesia Complication No 08/20/25 12:26 MECHANICAL MAINTENANCE ENGINEER.GDOTT Anesthesia Complication Comment: Post-operative progress note Anesthesia: Postop Eval II Evaluation Mental status: Awake and Calm Pain Level: 2 nausea: No Vomiting: No
--- NOTE | 2025-08-20 12:42 | PCM.OPRPT ---
Operative Report (Standard) Operative Information Date of Procedure: 08/20/25 Pre-Operative Diagnosis: Left ankle postoperative wound dehiscence and infection Post-Operative Diagnosis: Left ankle postoperative wound dehiscence and infection Surgery/Procedure Performed: 1. Irrigation and debridement left ankle of skin, subcutaneous tissue and fascia 2. Delayed primary closure left ankle wound 3. Application of incisional wound VAC left ankle ornamental plaster sticker: No Type of Anesthesia: General RN Documented Start/Stop Times: Operation Date: 08/20/25 11:00 Case Time Into Pre-Op 08/20/25 09:47 Anesthesia Start 08/20/25 11:26 Into Room 08/20/25 11:26 Procedure Start 08/20/25 11:43 Procedure End 08/20/25 12:12 Anesthesia End 08/20/25 12:18 Out of Room 08/20/25 12:18 Into Recovery 08/20/25 12:20 Procedure Start Time: 11:43 Procedure Stop Time: 12:12 Select all DRAINS/GRAFTS/IMPLANTS that apply: None Estimated Blood Loss: 25 cc Specimen collected: No Description of surgery: Patient was identified in the preoperative pulmonary by name, medical record number, and date of . The operative extremity was marked. All questions were answered to the patient's satisfaction. At time of his procedure, patient brought the operative suite positioned supine on a standard operating table. General anesthesia was induced and LMA placed. All bony prominences were well-padded. Left lower extremity was then prepped and draped in normal, sterile orthopedic fashion with a Betadine prep. A timeout was called confirming the side, site, and operation to be performed. No concerns were voiced and elected proceed with surgery. 3 g Ancef was administered IV prior to incision by anesthesia staff. No tourniquet was utilized. Wound measured 3 x 1 cm. I first used a curette to debride the wound base. There was reasonable appearing granulation tissue in the distal two thirds of the wound. In the proximal portion of the wound, probing revealed tunneling approximately 1 cm to the tip of the distal fibula. No purulence was encountered. Significant inflammatory tissue was present. I used a curette to debride the surrounding tissue. Skin edges were resected sharply with a 15 blade scalpel. Wound was copiously irrigated with Irrisept and then 3 L of normal saline solution via cystoscopy tubing. I then assessed the mobility of the wound edges. There was minimal contracture present. I used interrupted simple 2-0 nylon sutures to reapproximate the wound edge. Vascularity to the wound edges appeared appropriate without strangulation. The skin was then cleansed. A Prevena incisional wound VAC was then applied and assembled with good suction seal. A well-padded posterior splint was then applied and molded maximal dorsiflexion. He tolerated the procedure well without apparent complication. He safely awakened and extubated in the operative suite. He was transferred to his gurney and subsequently to PACU in stable condition. Postoperative plan: Patient be nonweightbearing to the upper extremity. Will plan to maintain the Prevena x 2 weeks. He has a follow-up appointment in 2 weeks. We will use aspirin 81 mg twice daily for DVT prophylaxis x 2 weeks. Provisional culture results yield Staphylococcus aureus. We will continue with doxycycline at this time and monitor for any necessary changes. Strict elevation was encouraged. Maintain splint until follow-up. Plan to remove the wound VAC in 2 weeks. Surgical Findings: Full-thickness wound lateral ankle 3 x 1 cm tunneling to tip of fibula. No gross purulence, inflammatory tissue throughout. Complications Complications: No Admit VTE Documentation VTE Present on Admission: No VTE Mechan Device Prophylaxis: SCD's VTE Pharm Prophylaxis ordered?: Yes
--- OUTSIDE RECORDS SUMMARY | 2025-08-20 13:52 | XMS RPT_ITS | CCD ---
Author Organization [facility] Care Team Providers Care Business Employment Specialist Name Role Phone Areli Still Unavailable Unavailable KORTNEY HENDRICKSON Attending Unavailable JANI PALMA Referring UnavailRICK Meyer DO Attending Unavail mónica PRABHAKAR MD, RAYO Primary Care Unavailable Louie VALENCIA, Dr. Batres Primary Care Provider McMorrow FINISHER PLATE-CMann Attending Provider Kenroyneffsow FINISHER PLATE-C, Mann Referring Provider Dr. Jani Palma MD Primary Care Physicia n McMorrow FINISHER PLATE-CMann Attending Physician Kenroyneffsow FINISHER PLATE-C, Mann Referring Provider Twin Phelps MD Attending Physician Twin Phelps MD Emergency Department Physician Dr. Samir Agarwal DO Attending Physician Dr. Samir Agarwal DO Referring Provider Jani Palma Primary Care Unavailable Samir Agarwal Attending Unavailable Samir Agarwal Referring Unavailable Kenroyorrow Mann ARORA Referring Unavailable Jani Palma Primary Care Unavailable Refugio FINISHER PLATEMann Attending Unavailable Jani Palma Primary Care Unavailable [...] Ankle 2 Viewson 07-24-2025 Ankle 2 Views [facility] Imaging Services [address] [place] [address] Ankle 2 Views MR#: [id number] Acct: [id number] Name: SANTANA SAENZ Rep #: [id number] : 2005 M 20 From: Lion Tracy MD PCP: Dr. Jani Palma MD Status: REG [facility] Study: Ankle 2 Views Date of Exam: 07/24/25 Exam# [id number] Ordering Dr: Samir Agarwal DO PROCEDURE: ANKLE [...] fibular fracture with metallic hardware. Reading Location: [facility] CC: Dr. Jani Palam MD; Dr. Samir Agarwal DO Quick Sketch Artist: Signed [facility] MR/POSTOP.[facility] 07-24-2025 MR/POSTOP.[facility] Medical Records Department [address] [place] [address] Anesthesia Postop Eval I 07/24/25 0905 MR#: [id number] Acct: [id number] Name: SANTANA SAENZ Rep #: [id number] : 2005 20 From: David Vargas CRNA PCP: Dr. Jani Palma MD Status:REG [facility] Y Race: C Location: [place] [address] Anesthesia: Postop Eval I Current Vital Signs Temperature: 98 F Pulse Rate: 92 Blood Pressure: 132/70 Respiratory Rate: 14 Pulse Ox: 96 Assessment Airway patent: Yes Spontaneous unlabored respirations: Yes nausea: No Vomiting: No Anesthesia Complication: No Fluid Hydration Crystalloid volume administer (ml): 1,200 Total IV fluid infused: 1,200 Progress Note Anesthesia document: Postop Eval 1 completed: Yes 07/24/25905 Date David Vargas MILITARY TECHNOLOGY SPECIALIST Cosigner Signature: Date CC: Signed Normal [facility] MR/[id number] 07-24-2025 MR/POSTOPAN2 [facility] Medical Records Department [address] [place] [address] Anesthesia Postop Eval II 07/24/25 1156 MR#: [id number] Acct: [id number] Name: SANTANA SAENZ Rep #: [id number] : 2005 20 From: Yue Jackson CRNA PCP: Dr. Jani Palma MD Status:[facility] Y Race: C Location: [facility] Anesthesia Postop Eval I Sum Postop Eval Completion status Anesthesia document: Postop Eval 1 completed: Yes Anesthesia Postop Eval I Summary Anesthesia Postop Eval I Summary: Anesthesia Postop Eval I: Assessment Summary Airway patent Yes 07/24/25 09:05 MILITARY TECHNOLOGY SPECIALIST.TNES Spontaneous unlabored Yes 07/24/25 09:05 MILITARY TECHNOLOGY SPECIALIST.TNES respirations Mental status nausea No 07/24/25 09:05 MILITARY TECHNOLOGY SPECIALIST.TNES Vomiting No 07/24/25 09:05 MILITARY TECHNOLOGY SPECIALIST.TNES Anesthesia Postop Eval I: Fluid Summary Crystalloid volume administer 1,200 07/24/25 09:05 MILITARY TECHNOLOGY SPECIALIST.TNES (ml) Colloids volume administered ( ml) Blood Product volume administered (ml) Total IV fluid infused 1,200 07/24/25 09:05 MILITARY TECHNOLOGY SPECIALIST.TNES Anesthesia Postop Eval I: Summary Notes Anesthesia Complication No 07/24/25 09:05 MILITARY TECHNOLOGY SPECIALIST.TNES Anesthesia Complication Comment: Post-operative progress note Anesthesia: Postop Eval II Evaluation Mental status: Awake Pain Level: 6 nausea: No Vomiting: No 07/24/25 115 Date Yue Valenciaigner Signature: Date CC: Signed Normal [facility] Operative Reporton 5 Operative Report [facility] Medical Records Department [address] [place] [address] Operative Report 07/24/25901 MR#: [id number] Acct: [id number] Name: SANTANA SAENZ Rep #: [id number] : 2005 From: Samir Agarwal DO PCP: Dr. Jani Palma MD Status:[facility] Location: [place] [address] Operative Report (Standard) Operative Information Date of Procedure: 07/24/25 Pre-Operative Diagnosis: 1. Left lateral malleolus fracture 2. Left ankle syndesmosis rupture Post-Operative Diagnosis: 1. Left lateral malleolus fracture 2. Left ankle syndesmosis rupture Surgery/Procedure Performed: 1. Open reduction internal fixation left lateral malleolus 2. Left ankle syndesmosis open reduction internal fixation bar turner: Yes Pain Management Nurse Practitioner: Amanda Valdez Tasks completed by graphic design assistant: Opening closing, Implanting device and Retracting Additional assistant printer floor covering?: No Type of Anesthesia: General/Regional RN Documented [...] complication. P (more content not included)... Normal [facility] Ankle min 3 Viewson 07-18-20 Ankle min 3 Views [facility] Imaging Services [address] [place], [place] [address] Ankle min 3 Views MR#: [id number] Acct: [id number] Name: SANTANA SAENZ Rep #: [id number] : 2005 M 20 From: Michel Sen MD PCP: Dr. Jani Palma MD Status: PRE ER Study: Ankle min 3 Views Date of Exam: 07/18/25 Exam# [id number] Ordering Dr: Provider,Ed P. PROCEDURE: LEFT ANKLE [...] of the distal fibular shaft. Reading Location: [id number] CC: Dr. Jani Palma MD; ED PHYSICIAN PROVIDER Quick Sketch Artist: Signed Normal [facility] Emergency Department Summary on 07-18-2025 Emergency Department Summary [facility] Medical Records Department [address] [place] [address] Emergency Department Summary 07/18/25 MR#: [id number] Acct: [id number] Name: SANTANA SAENZ Rep #: [id number] : 2005 20 From: Twin Phelps MD [...] of the distal fibular shaft. Reading Location: [facility] Management Discussion w/another healthcare provider: Minister Of Religion (Dr. Agarwal, orthopedics) Procedures Lower Extremity Splints [...] Referrals: Jani Palma MD [Primary Care Provider, [facility]] Samir Agarwal DO [Med Staff - Active Staff, Orthopedics] - 07/21/25 Activity Restrictions/Additiona l Instructions: Nonweightbearing on your left lower extremity. Use your crutches. Follow-up with Dr. Agarwal with (more content not included)... Normal [facility] Anion gap in Serum or Plasma Ordered By: [facility] on 05-05-2025 Anion gap [Moles/Vol] 14 mmol/L 5-15 [facility] BUN/creatinine ratioOrdered By: [facility] on 05-05-2025 Urea nitrogen/Creatinine [Mass ratio] 19.8 mg/mg 10-20 [facility] Bilirubin, totalOrdered By: [facility] on 05-05-2025 Bilirubin [Mass/Vol] 1.18 mg/dL 0.00-1.30 [facility] Carbon dioxide, total [Moles /volume] in Central venous bloodOrdered By: Mann [facility] on 05-05-2025 CO2 [Moles/Vol] 23.5 mmol/L 21.0-32.0 [facility] Chloride assayOrdered By: An gel [place] on 05-05-2025 Chloride [Moles/Vol] 104 mmol/L 98-108 [facility] Comprehensive Metabolic Prof ilon 05-05-2025 Albumin [Mass/Vol] 4.7 g/dL Normal 3.5-5.0 [facility] Comment on above: Order Comment: Inter face Comments: wants kidneys checked Order Date: 05/05/25 Order Info: 0786-1 - CMP check kidneys Performed By: #### L 500.4050 #### [facility] [address] [place], [place], [address] Albumin/Globulin [Mass ratio] 2.0 {ratio} Normal 0.9-2.4 [facility] Comment on above: Order Comment: Inter face Comments: wants kidneys checked Order Date: 05/05/25 Order Info: 0786-1 - CMP check kidneys Performed By: #### L 500.4050 #### [facility] [address] [place], [address] ALK PHOS 69 U/L Normal 40-129 [facility] Comment on above: Order Comment: Inter face Comments: wants kidneys checked Order Date: 05/05/25 Order Info: 0786-1 - CMP check kidneys Performed By: #### L 500.4050 #### [facility] [address] [place], [address] ALT [Catalytic activity/Vol] 62 U/L High <=46 [facility] Comment on above: Order Comment: Inter face Comments: wants kidneys checked Order Date: 05/05/25 Order Info: 785-1 - CMP check kidneys Performed By: #### L 500.4050 #### [facility] [address] [place], [address] AST [Catalytic activity/Vol] 31 U/L Normal <=37 [facility] Comment on above: Order Comment: Inter face Comments: wants kidneys checked Order Date: 05/05/25 Order Info: 785-1 - CMP check kidneys Performed By: #### L 500.4050 #### [facility] [address] [place], [address] Bilirubin [Mass/Vol] 1.18 mg/dL Normal 0.00-1.30 [facility] Comment on above: Order Comment: Inter face Comments: wants kidneys checked Order Date: 05/05/25 Order Info: 86-1 - CMP check kidneys Performed By: #### L 500.4050 #### [facility] [address] [place], [address] BUN/CRE 19.8 RATIO Normal 10-20 [facility] Comment on above: Order Comment: Inter face Comments: wants kidneys checked Order Date: 05/05/25 Order Info: 0786-1 - CMP check kidneys Performed By: #### L 500.4050 #### [facility] [address] [place], [address] Calcium [Mass/Vol] 9.4 mg/dL Normal 7.6-11.0 [facility] Comment on above: Order Comment: Inter face Comments: wants kidneys checked Order Date: 05/05/25 Order Info: 0786-1 - CMP check kidneys Performed By: #### L 500.4050 #### [facility] [address] [place], [address] Chloride [Moles/Vol] 104 mmol/L Normal 98-108 [facility] Comment on above: Order Comment: Inter face Comments: wants kidneys checked Order Date: 05/05/25 Order Info: 785-1 - CMP check kidneys Performed By: #### L 500.4050 #### [facility] [address] [place], [address] CO2 [Moles/Vol] 23.5 mmol/L Normal 21.0-32.0 [facility] Comment on above: Order Comment: Inter face Comments: wants kidneys checked Order Date: 05/05/25 Order Info: 785-1 - CMP check kidneys Performed By: #### L 500.4050 #### [facility] [address] [place], [address] Creatinine [Mass/Vol] 1.16 mg/dL Normal 0.70-1.20 [facility] Comment on above: Order Comment: Inter face Comments: wants kidneys checked Order Date: 05/05/25 Order Info: 07-1 - CMP check kidneys Performed By: #### L 500.4050 #### [facility] [address] [place], [address] GAP 14 Normal 5-15 [facility] Comment on above: Order Comment: Inter face Comments: wants kidneys checked Order Date: 05/05/25 Order Info: 0786-1 - CMP check kidneys Performed By: #### L 500.4050 #### [facility] [address] [place], [address] GFR/1.73 sq M.predicted among non-blacks MDRD (S/P/Bld) [Vol rate/Area] 92 mL/min/{1.73_m2} Normal >60 [facility] Comment on above: Order Comment: Inter face Comments: wants kidneys checked Order Date: 05/05/25 Order Info: 07-1 - CMP check kidneys Result Comment: mL/m in/1.73m2 CKD-EPI Creatinine Equation (2020) Performed By: #### L [id number] #### [facility] [address] [place], [place], [id number] [phone] Globulin (S) [Mass/Vol] 2.4 g/dL Normal 2.2-4.2 [facility] Comment on above: Order Comment: Inter face Comments: wants kidneys checked Order Date: 05/05/25 Order Info: 785-1 - CMP check kidneys Performed By: #### L 500.4050 #### [facility] [address] [place], [address] Glucose [Mass/Vol] 99 mg/dL Normal 70-99 [facility] Comment on above: Order Comment: Inter face Comments: wants kidneys checked Order Date: 05/05/25 Order Info: 785-10 - [facility] check kidneys Performed By: #### L 500.4050 #### [facility] [address] [place], [address] Potassium [Moles/Vol] 4.0 mmol/L Normal 3.3-5.1 [facility] Comment on above: Order Comment: Inter face Comments: wants kidneys checked Order Date: 05/05/25 Order Info: 785-1 - CMP check kidneys Performed By: #### L 500.4050 #### [facility] [address] [place], [address] Sodium [Moles/Vol] 141 mmol/L Normal 133-145 [facility] Comment on above: Order Comment: Inter face Comments: wants kidneys checked Order Date: 05/05/25 Order Info: 07-1 - CMP check kidneys Performed By: #### L 500.4050 #### [facility] [address] [place], [place], [address] T PROT 7.1 g/dL Normal 5.9-8.4 [facility] Comment on above: Order Comment: Inter face Comments: wants kidneys checked Order Date: 05/05/25 Order Info: 0786-1 - CMP check kidneys Performed By: #### L 500.4050 #### [facility] [address] [place], [place], [address] Urea nitrogen [Mass/Vol] 23 mg/dL High 4-19 [facility] Comment on above: Order Comment: Inter face Comments: wants kidneys checked Order Date: 05/05/25 Order Info: 0786-1 - CMP check kidneys Performed By: #### L 500.4050 #### [facility] [address] [place], [place], [address] Glomerular filtration rate ( GFR) estimation/1.73 sq m using serum, plasma, or whole bOrdered By: Mann Huff on 05-05-2025 GFR/1.73 sq M.predicted among non-blacks MDRD (S/P/Bld) [Vol rate/Area] 92 mL/min/{1.73_m2} >60 [facility] Comment on above: mL/min/1.73m2 CKD-EP I Creatinine Equation (2020) Laboratory - Chemistry and C hemistry - challengeOrdered By: Mann Huff on 05-05-2025 AST [Catalytic activity/Vol] 31 U/L <38 [facility] Potassium measurement (mass/ volume)Ordered By: Mann Huff 05-05-2025 Potassium (Unsp spec) [Mass/Vol] 4.0 mmol/L 3.3-5.1 [facility] Serum creatinine measurement (mass/volume)Ordered By: Mann Huff 05-05-2025 Creatinine [Mass/Vol] 1.16 mg/dL 0.70-1.20 [facility] Serum globulin measurementOr dered By: Mann Huff 05-05-2025 Globulin (S) [Mass/Vol] 2.4 g/dL 2.2-4.2 [facility] Serum glucose measurement (m ass/volume)Ordered By: Mann [facility] on 05-05-2025 Glucose [Mass/Vol] 99 mg/dL 70-99 [facility] Serum or plasma alanine salazar otransferase (ALT) measurementOrdered By: Mann [place] on 05-05-2025 ALT [Catalytic activity/Vol] 62 U/L High <47 [facility] Serum or plasma albumin demi urement (mass/volume)Ordered By: [facility] 05-05-2025 Albumin [Mass/Vol] 4.7 g/dL 3.5-5.0 [facility] Serum or plasma albumin/glob ulin mass ratioOrdered By: [facility] 05-05-2025 Albumin/Globulin [Mass ratio] 2.0 {ratio} 0.9-2.4 [facility] Serum or plasma alkaline rich sphatase measurementOrdered By: Mann [place]05-05-2025 ALP [Catalytic activity/Vol] 69 U/L 40-129 [facility] Serum or plasma calcium demi urement (mass/volume)Ordered By: Mann [place]05-05-2025 Calcium [Mass/Vol] 9.4 mg/dL 7.6-11.0 [facility] Serum or plasma urea nitroge n measurement (mass/volume)Ordered By: Mann [place] 05-05-2025 Urea nitrogen [Mass/Vol] 23 mg/dL High 4-19 [facility] Sodium levelOrdered By: [facility] Sodium [Moles/Vol] 141 mmol/L 133-145 [facility] Total proteinOrdered By: Fernando gongora [facility] on 05-05-2025 Protein [Mass/Vol] 7.1 g/dL 5.9-8.4 [facility] XR SPINE CERVICAL AP/LAT/FLE X/EXTon 11-12-2024 XR [...] 11/12/2024 9:15:32 AM Ordering Provider: RICK Solomon [facility] XR SPINE LUMBAR W/OBLIQUES 4 VIEWSon [...] 11/12/2024 9:15:32 AM Ordering Provider: RICK DUARTE [facility] XR SPINE THORACIC 2 VIEWSon 11-12-2024 XR [...] 11/12/2024 9:15:32 AM Ordering Provider: RICK DUARTE [facility] MSCon 09-17-2017 [facility] REPORT Normal [facility] DATE OF SERVICE: 09/17/2017REASON OF VISIT: [...] tomorrow. His mother understands and agreed. WILFREDO Nice/[id number]: 09/17/2017 20:04DT: 09/19/2017 20:25SSI File#: [id number] #: [id number] 04/18/[address] [facility] PATIENT NAME: SANTANA SAENZ A[address] [facility] [address] MEDICAL REC #: [id number], [place] [address] [facility] REPORT STATCARE PHYSICIAN Normal [facility] Vital Signs Date Time Vital Sign Value Performing Clinician Faci lity 07-24-2025 10:32-0400 Body temperature 98.9 [degF] Dr. Jani Palma MD Work Phone: [facility] 07-24-2025 10:32-0400 Diastolic blood pressure 75 mm[Hg] Dr. Jani Palma MD Work Phone: [facility] 07-24-2025 10:32-0400 Heart rate 91 /min Dr. Jani Palma MD Work Phone: [facility] 07-24-2025 10:32-0400 Respiratory rate 16 /min Dr. Jani Palma MD Work Phone: [facility] 07-24-2025 10:32-0400 SaO2% (BldA) [Mass fraction] 97 % Dr. Jani Palma MD Work Phone: [facility] 07-24-2025 10:32-0400 Systolic blood pressure 122 mm[Hg] Dr. Jani Palma MD Work Phone: [facility] 07-24-2025 06:34-0400 Body height 190.[address] Jani Palma MD Work Phone: 5(162)020-492753 [place] [address] 07-24-2025 06:34-0400 Body mass index (BMI) [Ratio] 39.4 kg/m2 Dr. Jani Palma MD Work Phone: 8(438)443-720853 [place] [address] 07-24-2025 06:34-0400 Body weight 142.[address] Jani Palma MD Work Phone: 7(597)002-012959 [place] [address] 07-18-2025 19:00-0400 Body temperature 98.2 [degF] Dr. Jani Palma MD Work Phone: 5(192)415-322759 [place] [address] 07-18-2025 19:00-0400 Diastolic blood pressure 102 mm[Hg] Dr. Jani Palma MD Work Phone: 6(229)716-589659 [place] [address] 07-18-2025 19:00-0400 Heart rate 105 /min Dr. Jani Palma MD Work Phone: 7(720)808-825659 [place] [address] 07-18-2025 19:00-0400 Respiratory rate 18 /min Dr. Jani Palma MD Work Phone: 7(074)520-965859 [place] [address] 07-18-2025 19:00-0400 SaO2% (BldA) [Mass fraction] 100 % Dr. Jani Palma MD Work Phone: 3(830)812-685659 [place] [address] 07-18-2025 19:00-0400 Systolic blood pressure 158 mm[Hg] Dr. Jani Palma MD Work Phone: 5(601)066-570059 [place] [address] 07-18-2025 17:06-0400 Body mass index (BMI) [Ratio] 40.4 kg/m2 Dr. aJni Palma MD Work Phone: 6(330)656-639259 [place] [address] 07-18-2025 17:06-0400 Body weight 146.[address] Jani Palma MD Work Phone: 2(708)344-451859 [place] [address] 02-07-2024 11:41-0400 Body temperature 97.3 [degF] [facility] 02-07-2024 11:41-0400 Diastolic blood pressure 64 mm[Hg] [facility] 02-07-2024 11:41-0400 Heart rate 75 /min [facility] 02-07-2024 11:41-0400 Respiratory rate 14 /min [facility] 02-07-2024 11:41-0400 SaO2% (BldA) [Mass fraction] 94 % [facility] 02-07-2024 11:41-0400 Systolic blood pressure 122 mm[Hg] [facility] 02-07-2024 11:11-0400 Inhaled oxygen flow rate 2 L/min [facility] 02-07-2024 09:28-0400 Body height 190.5 cm [facility] 02-07-2024 09:28-0400 Body mass index (BMI) [Percentile] Per age and sex 99.4 % [facility] 02-07-2024 09:28-0400 Body mass index (BMI) [Ratio] 37.5 kg/m2 [facility] 02-07-2024 09:28-0400 Body weight 136.4 kg [facility] 09-01-2023 16:38-0500 Body height 193.04 cm [facility] 09-01-2023 16:38-0500 Body mass index (BMI) [Percentile] Per age and sex 99.2 % [facility] 09-01-2023 16:38-0500 Body mass index (BMI) [Ratio] 35.8 kg/m2 [facility] 09-01-2023 16:38-0500 Body temperature 97.8 [degF] [facility] 09-01-2023 16:38-0500 Body weight 133.4 kg [facility] 09-01-2023 16:38-0500 Diastolic blood pressure 83 mm[Hg] [facility] 09-01-2023 16:38-0500 Heart rate 95 /min [facility] 09-01-2023 16:38-0500 Respiratory rate 16 /min [facility] 09-01-2023 16:38-0500 SaO2% (BldA) [Mass fraction] 98 % [facility] 09-01-2023 16:38-0500 Systolic blood pressure 164 mm[Hg] [facility] Encounters Encounter Date Encounter Type Care Provider Facility Start: 07-24-2025 End: 07-24-2025 ambulatory Jani Palma Facility:[facility] Start: 07-18-2025 End: 07-18-2025 Emergency department patient visit Dr. Twin Phelps MD -Emergency Department Work Phone: Start: 05-05-2025 End: 05-05-[address] Jani Palma MD Work Phone: -[facility] [place] Start: 05-05-2025 End: 05-05-2025 Patient encounter procedure Mann Huff FINISHER PLATE-C -[facility] [place] Work Phone: Start: 05-05-2025 End: 05-05-2025 ambulatory Mann Huff FINISHER PLATE Facility:[facility] Start: 11-11-2024 End: 11-11-2024 ambulatory RICK DUARTE DO Facility:D Start: 02-07-2024 End: 02-07-2024 Admission to same day surgery center [facility] Start: 02-07-2024 End: 02-07-2024 ambulatory [facility] Work Phone: Start: 12-01-2023 End: 12-01-2023 ambulatory [facility] Work Phone: Start: 12-01-2023 End: 12-01-2023 Patient encounter procedure [facility]-MRI - [facility] Work Phone: Start: 09-01-2023 End: 09-01-2023 Emergency department patient visit [facility]-Emergency Department Work Phone: Start: 11-30-2022 End: 11-30-2022 ambulatory [facility] Work Phone: Start: 11-30-2022 End: 11-30-2022 Patient encounter procedure [facility]-Radiology, [place] Start: 10-16-2022 End: 10-16-2022 ambulatory [facility] Work Phone: Start: 10-16-2022 End: 01-16-2023 Patient encounter procedure [facility] Start: 08-15-2022 End: 08-15-2022 ambulatory [facility] Work Phone: Start: 08-15-2022 End: 08-15-2022 Patient encounter procedure [facility] Start: 01-09-2022 End: 01-09-2022 Patient encounter procedure [facility] Start: 03-01-2021 ambulatory KORTNEY Ophelia FULLERCOREY Faci lity:[facility] Start: 09-17-2017 Patient encounter Pradavid Still Facjose francisco lity:[facility] Procedures Date Procedure Procedure Detail [...] of ice c ollar, cap or bag [facility] Start: 07-24-2025 Catheterization of vein [facility] Start: 07-24-2025 Elevation of affecte d extremity [facility] Start: 07-24-2025 Following clinical p athway protocol [facility] Start: 07-24-2025 Patient discharge [facility] Start: 07-24-2025 Procedure discontinued [facility] Start: 07-24-2025 Taking patient vital signs [facility] Start: 07-24-2025 Vital signs measurements [facility] Start: 07-24-2025 [facility] Start: 07-24-2025 Fluoroscopic guidance O.R. Flu gold for C-Arm [facility] Start: 07-24-2025 Radiologic examinati on ankle 2 views Ankle 2 Views [facility] Start: 07-24-2025 Open reduction with internal fixation ORIF, Ankle (Left) [facility] Start: 07-24-2025 End: 07-24-2025 Admission to same day surgery center [facility] Start: 07-24-2025 Medication education [facility] Start: 02-07-2024 Application of ice c ollar, cap or bag [facility] Start: 02-07-2024 Catheterization of vein [facility] Start: 02-07-2024 Following clinical p athway protocol [facility] Start: 02-07-2024 Patient discharge [facility] Start: 02-07-2024 Procedure discontinued [facility] Start: 02-07-2024 Taking patient vital signs [facility] Start: 02-07-2024 Vital signs measurements [facility] Start: 02-07-2024 [facility] Start: 02-07-2024 Medication education [facility] Start: 09-01-2023 [facility] Patient Education [facility] Work Phone: Patient referral [facility] Work Phone: Payers Date Payer Category Payer Self-pay [id number] 2024 Unknown [id number] 2024 Unknown [id number] 2005 Unknown [id number] Unknown [id number] Unknown [facility] [employer] [id number] Unknown . [id number] Unknown [id number] Unknown [id number] .. [id number] Unknown [id number] Social History Date Type Detail Facility Start: 09-20-2017 End: 01-21-2024 Tobacco smoking status DCIS Unknown if ever smoked [facility] Start: 2005 Sex Assigned At Male [facility] Start: 01-21-2024 End: 07-23-2025 Tobacco smoking status NHIS Never smoked tobacco (finding) [facility] Sex Male [facility] Medical Equipment Procedure Code Equipment Code Equipment Original Text Equipment Identifier Dates ORIF, ankle 2.7 cortical screw FDA Start : 07-24-2025 ORIF, ankle Ligament reconst ruction instrument set, reusable ()[id number] FDA Start: 07-24-2025 ORIF, ankle Ligament reconst ruction instrument set, reusable ()[id number] FDA Start: 07-24-2025 ORIF, ankle ([id number]) Orthopaedic bone pin, non-bioabsorbable ()[id number] FDA Start: 07-24-2025 Goals Date Patient Goal Desired Activity /State Mental Status Date Assessment Result Facility 07-24-2025 Cognitive function Level Of Consciousness Sedated [facility] Work Phone: 07-24-2025 Cognitive function Voice/Name [facility] Work Phone: 02-07-2024 Cognitive function Voice/Name [facility] Work Phone: Discharge summary 07-18-2025 Note Date & Type Note Facility 07-18-2025 Discharge summary [facility] Radiology Diagnostic study note 07-18-2025 Note Date & Type Note Facility 07-18-2025 Radiology Diagnostic study note [facility] Imaging Services [address] [place], [place] [address] Ankle min 3 Views MR#: [id number] Acct: [id number] Name: SANTANA SAENZ Rep #: [id number] : 2005 M 20 From: Armani Sen MD PCP: Dr. Jani Palma MD Status: PRE ER Study:Ankle min 3 Views Date of Exam: Exam# [id number] Ordering Dr: Provider ,Ed P. PROCEDURE: LEFT [...] of the distal fibular shaft. Reading Location: [id number] CC: Dr. Jani Palma MD; ED PHYSICIAN PROVIDER ~ Quick Sketch Artist: Signed [facility] Discharge summary 07-18-2025 Note Date & Type Note Facility 07-18-2025 Discharge summary Note Date/Time July 18, 2025 7:46pm [facility] Medical Records Department [address] [place] [id number] Emergency Department Summary 07/18/25 MR#: [id number] Acct: [id number] Name: SANTANA SAENZ Rep #:[id number] : [...] aspect of his ankle. Denies other injuries. [facility] Medical History Back pain Injury of back [...] of the distal fibular shaft. Reading Location: [facility] Management Discussion w/another healthcare provider: [employer] (Dr. Agarwal, orthopedics) Procedures Lower Extremity Splints Lower Extremity Splint: Orthoglass and Stirrup (With posterior portion) Splint Fabrication: Fabricated Location: Left Discharge Plan Triage Chief Complaint: Lower Extremity Injury ED Provider: Tiwn Phelps Dx/Rx/DC Orders Clinical Impression: Fracture of [...] with new or worsening symptoms. Print Language: Lithuanian Disposition Disposition: Home, Self Care What to do if you have Problems For any increased pain, shortness of breath, bleeding, nausea or vomiting, chestpain, or any unexpected problems, contact your Primary Care Provider. Call [facility] ([phone]) or report to the closest Emergency Room. Call 911 if necessary. 07/18/25 [id number] <Electronically signed by Twin Phelps MD> Cosigner Signature (if applicable): CC: Dr. Jani Palma MD ~ Signed [facility] Work Phone: Procedure note 02-07-2024 Note Date & Type Note Facility 02-07-2024 Procedure note [facility] Evaluation note Note Date & Type Note Facility Evaluation note No assessment information availa ble [facility] Work Phone: Hospital Discharge instructions Note Date [...] possible. Return with new or worsening symptoms. [facility] Work Phone: Reason for referral (narrative) Note Date & Type Note Facility Reason for referral (narrative) No reason for referral information available [facility] Work Phone: Summary Purpose Family History No Family History Records FoundNo Family History Records FoundNo Family History Records FoundNo Family History Records Found Advance Directives No Advanced Directives Records Found Advance Directive Response Recorded Date/ Time Living Will No September 01 5:32pm Power of Cosmetician No September 01, 2023 5:32pm Advance Directive Response Recorded Date/ Time Living Will No January 21, 2024 10:12am Power of Cosmetician No January 20 10:12am Advance Directive Response Recorded Date/ Time Do you have a Healthcare Power of Cosmetician? No July 23, 2025 9:17am Do you have a Healthcare Power of Cosmetician? No July 18, 2025 4:40pm Chief Complaint [...] CREATED AUTHOR 04/19/2018 [facility] DATE CREATED AUTHOR AUTHOR'S ORGANIZ ATION 03/02/2021 [facility] DATE CREATED AUTHOR AUTHOR'S ORGANIZ ATION 11/13/2024 [facility] DATE CREATED AUTHOR AUTHOR'S ORGANIZ ATION 08/08/2025 [facility] Goals (unrecognized section and content) Goals may [...] 2025 End: May 05, 2025 Mann Huff FINISHER PLATE, FINISHER PLATE-C Attending Provider Active Start: May 05, 2025 End: May 05, 2025 Mann Huff [employer]ISHER PLATE, FINISHER PLATE-C Referring Provider Active Start: May 05, 2025 End: May 05, 2025 Team Status: Active Member Role/Relationship Status Dates Dr. Jani Palma MD Primary care physician [facility] Team Status: Inactive Member Role/Relationship Status Dates Dr. Jani Palma MD Primary care physician [facility] Start: May 05, 2025 End: May 05, 2025 Mann Huff FINISHER PLATE, FINISHER PLATE-C Attending physician Active Start: May 05, 2025 End: May 05, 2025 Mann Huff FINISHER PLATE, FINISHER PLATE-C Referring Provider Active Start: May 05, 2025 [...] BE BASED ON THE PRIMARY CLINICAL RECORDS. [facility] [employer] provides no warranty or guarantee of the accuracy or completeness of information in this document.
== END 2025-08-20 13:52 | disposition home or self-care (01) ==
LOC: SDC 09:34 → AC 09:35
PROVIDERS: PCP Family Medicine; Referring Provider Student in an Organized Health Care Education/Training Program; Visit Provider Student in an Organized Health Care Education/Training Program
PROC: (CPT 11043; principal; 2025-08-20 10:45)
DX: T81.42XA Infection following a procedure, deep incisional surgical site, initial encounter (principal); T81.31XA Disruption of external operation (surgical) wound, not elsewhere classified, initial encounter; B95.61 Methicillin susceptible Staphylococcus aureus infection as the cause of diseases classified elsewhere
CPT/HCPCS: 11043; 00400; J2405